=== PATIENT | male | born 1975 | race African-American/Black ===

== ENCOUNTER 2024-05-15 11:16 | Inpatient (IN) ==
--- NOTE | 2024-05-15 12:00 | Emergency Department Note ---
Impression & Plan Sepsis, Abdominal pain, Sinus tachycardia, Hypomagnesemia, Abnormal EKG, Elevated troponin I level, Acute constipation, Acute UTI (urinary tract infection) ED Provider Note NAME: KARI CORBETT AGE: 48 SEX: M : 1975 ARRIVES VIA: Walk-In INFORMANT: Patient, ED PROVIDER(S): Ghassan Isbell DO CHIEF COMPLAINT: Abdominal pain HPI: The patient is a 48-year-old male who presented to the emergency department for an evaluation of chest pain congestion and abdominal pain. The patient has a history of Parkinson's. He has difficulty communicating so he came with his caregiver. She also does provide the history. The patient states for about 3 to 4 days he has been having pain. He points to his left upper quadrant and left flank. He also states he has pain with breathing and chest pain. He denies having any vomiting. He denies having any diarrhea. He does self cath and sometimes has urine infections. He is been having chills but no definite fever. The patient was not seen by his family doctor but presented to the emergency department for further evaluation. ROS: See above HPI for pertinent positives & negatives. A total of 10 systems reviewed and were otherwise negative. PAST MEDICAL HISTORY: See Below PAST SURGICAL HISTORY: See Below FAMILY HISTORY: See Below SOCIAL HISTORY: See Below HOME MEDICATIONS: See Below ALLERGIES: See Below VITALS: See Below PHYSICAL EXAMINATION: GENERAL: The is awake and alert. He is somewhat anxious appearing. EYES: The conjunctivae are clear. The pupils are round and reactive. EARS, NOSE, MOUTH AND THROAT: The nose is without any evidence of any deformity. NECK: The neck is nontender and supple. RESPIRATORY: Normal respiratory effort is noted there is no evidence of wheezing rhonchi or rales CARDIOVASCULAR: Tachycardic and irregular heart sounds were noted to auscultation. There is no definite murmur. GASTROINTESTINAL: The abdomen was distended. There is left upper quadrant tenderness to palpation which was moderate. MUSCULOSKELETAL/EXTREMITIES: There is no evidence of gross deformity full range of motion is noted in the hips and shoulders. SKIN: There is no obvious evidence of any rash. There are no petechiae, pallor or cyanosis noted. NEUROLOGIC: Patient is awake alert and oriented x3 MEDICAL DECISION MAKING: The patient is a 48-year-old male who presented to the emergency department for an evaluation of abdominal pain. The patient appeared very uncomfortable. He was tachycardic. His blood pressure initially was elevated. He then started to drop his blood pressure. EKG showed no ST segment elevations but diffuse ST depressions were noted. Initial troponin was slightly elevated. The patient mostly localized pain to his left upper quadrant. He has a history of urinary tract infections in the past. He does self cath for urine. I discussed the patient's laboratory and radiographic studies with him. He may have some swallowing difficulty and may have some chronic aspiration. CT of the chest would suggest that. There was no definite venous thromboembolic disease but the patient does take oral anticoagulants. The patient did not have any acute process noted on abdomen. Given the patient's vital signs and the possibility of sepsis I did discuss the patient's condition with the on-call hospitalist group. Triage Nursing notes reviewed. Prior medical records reviewed Vital Signs: reviewed and remarkable for tachycardia and fever. Intermittent hypotension was also noted. Differential diagnosis: Viral syndrome, otitis, pharyngitis, pneumonia, influenza, meningitis, urinary tract infection, sepsis, bacteremia, as well as other pathologies. ER treatment provided: See below Diagnostics interpreted by me: ECG: EKG was obtained in the emergency department. My interpretation is sinus tachycardia at 146 bpm. There was no ectopy. Nonspecific ST depressions were noted. No previous tracing was available. Cardiac Monitoring: An order was placed for continuous cardiac monitoring. The monitor shows a rate of 129 bpm with sinus tachycardia. Laboratory studies: As stated above and show below. Imaging studies: See below. Radiographic imaging was reviewed by myself Consultation(s): Dr. Mathis was notified about the patient. He will evaluate the patient in the emergency department. I discussed this case with Kevyn who is on for the [facility] hospitalist. ED COURSE: Procedures: none Critical Care: I have personally spent greater than 45 minutes of critical care time in the direct management of this patient. This includes bedside care, interpretation of diagnostic studies, and testing, discussion with consultants, patient, and family members, and other required patient management activities. This 45 minutes is in excess of all separately billable procedures. Past Med/Surg History Problem List (Updated 05/15/24 @ 19:51 by Ghassan Isbell DO) Acute UTI (urinary tract infection) (Acute) Chronic pain At risk for aspiration Supratherapeutic INR Acute constipation (Acute) Elevated troponin I level (Acute) Abnormal EKG (Acute) Hypomagnesemia (Acute) Sinus tachycardia (Acute) Abdominal pain (Acute) Sepsis (Acute) Medical History Parkinsons Surgical History S/P deep brain stimulator placement Social History Smoking Status: Never smoker Feels Safe at Home: Yes Allergies Allergies Allergy/AdvReac Type Severity Reaction Status Date / Time No Known Allergies Allergy Unverified 05/15/24 16:10 Home Meds Home Medications Medication Instructions Recorded Confirmed albuterol sulfate 90 mcg/actuation 2 puff inhalation Q6 PRN Wheezing 05/15/24 05/15/24 aerosol inhaler amantadine HCl 137 mg 274 mg PO HS 05/15/24 05/15/24 capsule,extended release 24 hr (Gocovri) atorvastatin 20 mg tablet 20 mg PO HS 05/15/24 05/15/24 baclofen 10 mg tablet 10 mg PO TID 05/15/24 05/15/24 carbidopa ER 36.25 mg-levodopa 145 1 cap PO QID 05/15/24 05/15/24 mg capsule,extended release (Rytary) fluticasone fur. 100 mcg-umeclid 1 ea inhalation DAILY 05/15/24 05/15/24 62.5 mcg-vilant 25 mcg inhalat.powder (Trelegy Ellipta) ipratropium 0.5 mg-albuterol 3 mg 3 ml inhalation Q6 05/15/24 05/15/24 (2.5 mg base)/3 mL nebulization soln nitrofurantoin 100 mg PO QAM 05/15/24 05/15/24 monohydrate/macrocrystals 100 mg capsule omeprazole 40 mg capsule,delayed 40 mg PO HS 05/15/24 05/15/24 release oxycodone 30 mg tablet 30 mg PO Q4 PRN Pain 05/15/24 05/15/24 warfarin 2 mg tablet 2 mg PO UD 05/15/24 05/15/24 warfarin 2.5 mg tablet 2.5 mg PO UD 05/15/24 05/15/24 Results & Data (ED) Vital Signs Vital Signs - 24 hr 05/15/24 11:21 05/15/24 11:29 05/15/24 11:38 Temperature 37.8 C H Temperature Source Temporal Artery Scan Pulse Rate 152 H 151 H Pulse Rate [Right] 129 H Pulse Rate from SpO2 Sensor Pulse Rhythm [Right] Regular Pulse Strength [Right] Normal Respiratory Rate 22 61 H Respiratory Effort / Characteristics Labored Respiratory Depth Shallow Shallow Respiratory Pattern Tachypnea Blood Pressure 148/48 H Blood Pressure [Right Arm] 111/79 Blood Pressure Mean 81 Blood Pressure Mean [Right Arm] 89 Blood Pressure Position [Right Arm] Sitting Pulse Oximetry 94 94 Oxygen Delivery Method Room Air Nasal Cannula Oxygen Flow Rate 6 Sepsis Recent Fever Within 48 Hours Yes Sepsis New/Unexplained Change in Mental Status No Sepsis Action Taken by Nursing No Action Required 05/15/24 11:42 05/15/24 11:57 05/15/24 12:18 Temperature Temperature Source Pulse Rate 145 H 145 H 133 H Pulse Rate [Right] Pulse Rate from SpO2 Sensor 133 H Pulse Rhythm [Right] Pulse Strength [Right] Respiratory Rate 58 H 48 H 63 H Respiratory Effort / Characteristics Respiratory Depth Respiratory Pattern Blood Pressure 110/71 82/58 L 98/59 L Blood Pressure [Right Arm] Blood Pressure Mean 84 66 72 Blood Pressure Mean [Right Arm] Blood Pressure Position [Right Arm] Pulse Oximetry 95 Oxygen Delivery Method Nasal Cannula Nasal Cannula Nasal Cannula Oxygen Flow Rate 6 6 6 Sepsis Recent Fever Within 48 Hours Sepsis New/Unexplained Change in Mental Status Sepsis Action Taken by Nursing 05/15/24 12:24 05/15/24 12:27 05/15/24 12:45 Temperature Temperature Source Pulse Rate 130 H 130 H 127 H Pulse Rate [Right] Pulse Rate from SpO2 Sensor 130 H 130 H 127 H Pulse Rhythm [Right] Pulse Strength [Right] Respiratory Rate 64 H 62 H 59 H Respiratory Effort / Characteristics Respiratory Depth Respiratory Pattern Blood Pressure 94/45 L 102/42 L 113/75 Blood Pressure [Right Arm] Blood Pressure Mean 61 62 87 Blood Pressure Mean [Right Arm] Blood Pressure Position [Right Arm] Pulse Oximetry 94 95 97 Oxygen Delivery Method Nasal Cannula Nasal Cannula Nasal Cannula Oxygen Flow Rate 6 6 6 Sepsis Recent Fever Within 48 Hours Sepsis New/Unexplained Change in Mental Status Sepsis Action Taken by Nursing 05/15/24 13:30 05/15/24 13:36 05/15/24 13:45 Temperature Temperature Source Pulse Rate 117 H 115 H 115 H Pulse Rate [Right] Pulse Rate from SpO2 Sensor 118 H 115 H 119 H Pulse Rhythm [Right] Pulse Strength [Right] Respiratory Rate 58 H 58 H 58 H Respiratory Effort / Characteristics Respiratory Depth Respiratory Pattern Blood Pressure 121/73 118/73 114/66 Blood Pressure [Right Arm] Blood Pressure Mean 89 88 82 Blood Pressure Mean [Right Arm] Blood Pressure Position [Right Arm] Pulse Oximetry 99 99 99 Oxygen Delivery Method Nasal Cannula Nasal Cannula Nasal Cannula Oxygen Flow Rate 6 6 6 Sepsis Recent Fever Within 48 Hours Sepsis New/Unexplained Change in Mental Status Sepsis Action Taken by Nursing 05/15/24 13:54 05/15/24 14:03 05/15/24 14:09 Temperature Temperature Source Pulse Rate 115 H 113 H 114 H Pulse Rate [Right] Pulse Rate from SpO2 Sensor 115 H 113 H 114 H Pulse Rhythm [Right] Pulse Strength [Right] Respiratory Rate 58 H 57 H 57 H Respiratory Effort / Characteristics Respiratory Depth Respiratory Pattern Blood Pressure 120/87 119/92 123/92 Blood Pressure [Right Arm] Blood Pressure Mean 98 101 102 Blood Pressure Mean [Right Arm] Blood Pressure Position [Right Arm] Pulse Oximetry 98 98 98 Oxygen Delivery Method Nasal Cannula Nasal Cannula Nasal Cannula Oxygen Flow Rate 6 6 6 Sepsis Recent Fever Within 48 Hours Sepsis New/Unexplained Change in Mental Status Sepsis Action Taken by Nursing 05/15/24 14:10 05/15/24 14:21 05/15/24 14:30 Temperature Temperature Source Pulse Rate 113 H Pulse Rate [Right] Pulse Rate from SpO2 Sensor 112 H Pulse Rhythm [Right] Pulse Strength [Right] Respiratory Rate 56 H Respiratory Effort / Characteristics Respiratory Depth Respiratory Pattern Blood Pressure 119/93 140/79 123/96 Blood Pressure [Right Arm] Blood Pressure Mean 103 99 106 Blood Pressure Mean [Right Arm] Blood Pressure Position [Right Arm] Pulse Oximetry 99 Oxygen Delivery Method Nasal Cannula Oxygen Flow Rate 6 Sepsis Recent Fever Within 48 Hours Sepsis New/Unexplained Change in Mental Status Sepsis Action Taken by Nursing 05/15/24 15:30 05/15/24 15:40 05/15/24 15:40 Temperature Temperature Source Pulse Rate Pulse Rate [Right] Pulse Rate from SpO2 Sensor Pulse Rhythm [Right] Pulse Strength [Right] Respiratory Rate Respiratory Effort / Characteristics Respiratory Depth Respiratory Pattern Blood Pressure 104/67 118/62 118/62 Blood Pressure [Right Arm] Blood Pressure Mean 76 75 75 Blood Pressure Mean [Right Arm] Blood Pressure Position [Right Arm] Pulse Oximetry Oxygen Delivery Method Oxygen Flow Rate Sepsis Recent Fever Within 48 Hours Sepsis New/Unexplained Change in Mental Status Sepsis Action Taken by Nursing 05/15/24 15:42 05/15/24 15:45 05/15/24 15:45 Temperature Temperature Source Pulse Rate 113 H Pulse Rate [Right] Pulse Rate from SpO2 Sensor 112 H Pulse Rhythm [Right] Pulse Strength [Right] Respiratory Rate 55 H Respiratory Effort / Characteristics Respiratory Depth Respiratory Pattern Blood Pressure 96/72 L 96/72 L Blood Pressure [Right Arm] Blood Pressure Mean 85 85 Blood Pressure Mean [Right Arm] Blood Pressure Position [Right Arm] Pulse Oximetry 94 Oxygen Delivery Method Room Air Oxygen Flow Rate Sepsis Recent Fever Within 48 Hours Sepsis New/Unexplained Change in Mental Status Sepsis Action Taken by Nursing 05/15/24 15:45 05/15/24 15:45 05/15/24 15:48 Temperature Temperature Source Pulse Rate 112 H 113 H Pulse Rate [Right] Pulse Rate from SpO2 Sensor 112 H 113 H Pulse Rhythm [Right] Pulse Strength [Right] Respiratory Rate 55 H 55 H Respiratory Effort / Characteristics Respiratory Depth Respiratory Pattern Blood Pressure 96/72 L Blood Pressure [Right Arm] Blood Pressure Mean 85 Blood Pressure Mean [Right Arm] Blood Pressure Position [Right Arm] Pulse Oximetry 93 95 Oxygen Delivery Method Room Air Oxygen Flow Rate Sepsis Recent Fever Within 48 Hours Sepsis New/Unexplained Change in Mental Status Sepsis Action Taken by [facility] Medications Current Medication List: was personally reviewed by me Laboratory Data Attestation: I reviewed the patient's lab results. 05/15/24 12:02 05/15/24 12:02 Lab Results 05/15/24 05/15/24 05/15/24 Range/Units 12:02 12:43 12:48 WBC 4.61 L (4.8-10.8) K/ul RBC 5.54 (4.70-6.10) M/uL Hgb 14.2 (14.0-18.0) g/dl POC Hgb 13.6 L (14.0-18.0) g/dl Hct 46.3 (42.0-52.0) % POC Hct 40 L (42-52) % MCV 83.6 (80.0-100.0) fL MCH 25.6 (25.0-34.0) pg MCHC 30.7 L (32.0-36.0) g/dL RDW Std Deviation 42.5 (36.4-46.3) fL RDW Coeff of Margie 13.9 (11.5-14.5) % Plt Count 152 (130-400) K/uL MPV 10.2 (9.4-12.4) fL Immature Gran % (Auto) 0.4 % Neut % (Auto) 77.5 % Lymph % (Auto) 18.4 % [place] % (Auto) 2.4 % Eos % (Auto) 0.9 % Baso % (Auto) 0.4 % Neut # (Auto) 3.57 (1.40-6.50) K/uL Lymph # (Auto) 0.85 L (1.20-3.40) K/uL [place] # (Auto) 0.11 (0.11-0.59) K/uL Eos # (Auto) 0.04 (0.00-0.50) K/uL Baso # (Auto) 0.02 (0.00-0.20) K/uL Immature Gran # (Auto) 0.02 (0.01-0.20) K/uL PT 44.5 H (9.0-12.0) Seconds INR 4.7 H (0.9-1.1) APTT 38 H (21-31) Seconds PTT Ratio 1.4 VBG pH 7.34 L (7.36-7.41) VBG pCO2 39 (38-50) mmHg VBG pO2 71 mmHg VBG HCO3 21 mmol/L VBG O2 Saturation 96.0 % VBG Base Excess -4.4 mEq/L POC Sodium 144 (135-144) mmol/L Sodium 140 (136-145) mmol/L POC Potassium 3.4 (3.3-5.0) mmol/L Potassium 3.9 (3.5-5.1) mmol/L POC Chloride 107 (101-112) mmol/L Chloride 104 (98-107) mmol/L Carbon Dioxide 24 (21-32) mmol/L POC Total CO2 20 L (24-31) mmol/L Anion Gap 12 H (3-11) POC Anion Gap 21.0 (16-25) mmol/L POC BUN 16 (7-18) mg/dl BUN 18 (6-23) mg/dl Creatinine 1.24 (0.6-1.4) mg/dl POC Creatinine 1.1 (0.6-1.3) mg/dl Est Cr Clr Drug Dosing Not Reportable Est GFR ( Amer) 79.7 ml/min Est GFR (Non-Af Amer) 68.8 ml/min BUN/Creatinine Ratio 14.5 (10-20) Glucose 110 H (70-99(Fasting)) mg/dl POC Glucose (other) 97 (70-99) mg/dl Lactate (0.4-2.0) mmol/L Calcium 9.6 (8.6-10.3) mg/dl POC Ioniz Calcium [place]uyet 1.09 L (1.12-1.32) mmol/l Magnesium 1.6 L (1.7-2.4) mg/dl Total Bilirubin 1.1 H (0.2-1.0) mg/dl Direct Bilirubin 0.3 H (0-0.2) mg/dl AST 19 (13-39) U/L ALT 10 (7-52) U/L Alkaline Phosphatase 119 H (34-104) U/L Troponin I High Sens 20.9 H (0-20) pg/ml Total Protein 7.6 (6.0-8.3) gm/dl Albumin 4.4 (3.4-5.0) gm/dl Procalcitonin 10.10 H (0-0.5) ng/ml Urine Color Urine Appearance (Clear) Urine pH (4.5-7.5) Ur Specific [place] (1.000-1.030) Urine Protein (Negative) Urine Glucose (UA) (Negative) Urine Ketones (Negative) Urine Blood (Negative) Urine Nitrite (Negative) Urine Bilirubin (Negative) Urine Urobilinogen (Negative) Ur Leukocyte Esterase (Negative) Urine WBC (Auto) (0-5) /hpf Urine RBC (Auto) (0-2) /hpf U Hyaline Cast (Auto) (0-2) /lpf U Epithel Cells (Auto) (0-2) /hpf Urine Bacteria (Auto) (None Seen) Urine Mucus (None Prsent) Urine Yeast (None Prsent) Urine Sperm (None Prsent) Adenovirus (PCR) (NotDetected) B. pertussis DNA (PCR) (NotDetected) B.parapertussis DNA PCR (NotDetected) C. pneumoniae DNA (PCR) (NotDetected) Coronavirus OC43 (PCR) (NotDetected) Coronavirus HKU1 (PCR) (NotDetected) Coronavirus 229E (PCR) (NotDetected) SARS-CoV-2 (PCR) (NotDetected) Coronavirus NL63 (PCR) (NotDetected) Human Metapneumovir PCR (NotDetected) Influenza Type A (PCR) (NotDetected) Influenza Type B (PCR) (NotDetected) M. pneumoniae (PCR) (NotDetected) Parainfluenza 1 (PCR) (NotDetected) Parainfluenza 2 (PCR) (NotDetected) Parainfluenza 3 (PCR) (NotDetected) Parainfluenza 4 (PCR) (NotDetected) RSV (PCR) (NotDetected) Entero/Rhino (PCR) (NotDetected) 05/15/24 05/15/24 05/15/24 Range/Units 13:28 14:20 14:22 WBC (4.8-10.8) K/ul RBC (4.70-6.10) M/uL Hgb (14.0-18.0) g/dl POC Hgb (14.0-18.0) g/dl Hct (42.0-52.0) % POC Hct (42-52) % MCV (80.0-100.0) fL MCH (25.0-34.0) pg MCHC (32.0-36.0) g/dL RDW Std Deviation (36.4-46.3) fL RDW Coeff of Margie (11.5-14.5) % Plt Count (130-400) K/uL MPV (9.4-12.4) fL Immature Gran % (Auto) % Neut % (Auto) % Lymph % (Auto) % [place] % (Auto) % Eos % (Auto) % Baso % (Auto) % Neut # (Auto) (1.40-6.50) K/uL Lymph # (Auto) (1.20-3.40) K/uL [place] # (Auto) (0.11-0.59) K/uL Eos # (Auto) (0.00-0.50) K/uL Baso # (Auto) (0.00-0.20) K/uL Immature Gran # (Auto) (0.01-0.20) K/uL PT (9.0-12.0) Seconds INR (0.9-1.1) APTT (21-31) Seconds PTT Ratio VBG pH (7.36-7.41) VBG pCO2 (38-50) mmHg VBG pO2 mmHg VBG HCO3 mmol/L VBG O2 Saturation % VBG Base Excess mEq/L POC Sodium (135-144) mmol/L Sodium (136-145) mmol/L POC Potassium (3.3-5.0) mmol/L Potassium (3.5-5.1) mmol/L POC Chloride (101-112) mmol/L Chloride (98-107) mmol/L Carbon Dioxide (21-32) mmol/L POC Total CO2 (24-31) mmol/L Anion Gap (3-11) POC Anion Gap (16-25) mmol/L POC BUN (7-18) mg/dl BUN (6-23) mg/dl Creatinine (0.6-1.4) mg/dl POC Creatinine (0.6-1.3) mg/dl Est Cr Clr Drug Dosing Est GFR ( Amer) ml/min Est GFR (Non-Af Amer) ml/min BUN/Creatinine Ratio (10-20) Glucose (70-99(Fasting)) mg/dl POC Glucose (other) (70-99) mg/dl Lactate 1.2 (0.4-2.0) mmol/L Calcium (8.6-10.3) mg/dl POC Ioniz Calcium [place] (1.12-1.32) mmol/l Magnesium (1.7-2.4) mg/dl Total Bilirubin (0.2-1.0) mg/dl Direct Bilirubin (0-0.2) mg/dl AST (13-39) U/L ALT (7-52) U/L Alkaline Phosphatase (34-104) U/L Troponin I High Sens 235.4 H* D (0-20) pg/ml Total Protein (6.0-8.3) gm/dl Albumin (3.4-5.0) gm/dl Procalcitonin (0-0.5) ng/ml Urine Color Dark Yellow Urine Appearance Cloudy A (Clear) Urine pH 5.5 (4.5-7.5) Ur Specific [place] > 1.045 H (1.000-1.030) Urine Protein 2+ H (Negative) Urine Glucose (UA) Negative (Negative) Urine Ketones Trace H (Negative) Urine Blood Trace H (Negative) Urine Nitrite Positive A (Negative) Urine Bilirubin Negative (Negative) Urine Urobilinogen Negative (Negative) Ur Leukocyte Esterase 1+ H (Negative) Urine WBC (Auto) >50 H (0-5) /hpf Urine RBC (Auto) 6-10 H (0-2) /hpf U Hyaline Cast (Auto) 11-20 H (0-2) /lpf U Epithel Cells (Auto) 0-2 (0-2) /hpf Urine Bacteria (Auto) 3+ H (None Seen) Urine Mucus Present A (None Prsent) Urine Yeast Present A (None Prsent) Urine Sperm Present A (None Prsent) Adenovirus (PCR) (NotDetected) B. pertussis DNA (PCR) (NotDetected) B.parapertussis DNA PCR (NotDetected) C. pneumoniae DNA (PCR) (NotDetected) Coronavirus OC43 (PCR) (NotDetected) Coronavirus HKU1 (PCR) (NotDetected) Coronavirus 229E (PCR) (NotDetected) SARS-CoV-2 (PCR) (NotDetected) Coronavirus NL63 (PCR) (NotDetected) Human Metapneumovir PCR (NotDetected) Influenza Type A (PCR) (NotDetected) Influenza Type B (PCR) (NotDetected) M. pneumoniae (PCR) (NotDetected) Parainfluenza 1 (PCR) (NotDetected) Parainfluenza 2 (PCR) (NotDetected) Parainfluenza 3 (PCR) (NotDetected) Parainfluenza 4 (PCR) (NotDetected) RSV (PCR) (NotDetected) Entero/Rhino (PCR) (NotDetected) 05/15/24 Range/Units 14:24 WBC (4.8-10.8) K/ul RBC (4.70-6.10) M/uL Hgb (14.0-18.0) g/dl POC Hgb (14.0-18.0) g/dl Hct (42.0-52.0) % POC Hct (42-52) % MCV (80.0-100.0) fL MCH (25.0-34.0) pg MCHC (32.0-36.0) g/dL RDW Std Deviation (36.4-46.3) fL RDW Coeff of Margie (11.5-14.5) % Plt Count (130-400) K/uL MPV (9.4-12.4) fL Immature Gran % (Auto) % Neut % (Auto) % Lymph % (Auto) % [place] % (Auto) % Eos % (Auto) % Baso % (Auto) % Neut # (Auto) (1.40-6.50) K/uL Lymph # (Auto) (1.20-3.40) K/uL [place] # (Auto) (0.11-0.59) K/uL Eos # (Auto) (0.00-0.50) K/uL Baso # (Auto) (0.00-0.20) K/uL Immature Gran # (Auto) (0.01-0.20) K/uL PT (9.0-12.0) Seconds INR (0.9-1.1) APTT (21-31) Seconds PTT Ratio VBG pH (7.36-7.41) VBG pCO2 (38-50) mmHg VBG pO2 mmHg VBG HCO3 mmol/L VBG O2 Saturation % VBG Base Excess mEq/L POC Sodium (135-144) mmol/L Sodium (136-145) mmol/L POC Potassium (3.3-5.0) mmol/L Potassium (3.5-5.1) mmol/L POC Chloride (101-112) mmol/L Chloride (98-107) mmol/L Carbon Dioxide (21-32) mmol/L POC Total CO2 (24-31) mmol/L Anion Gap (3-11) POC Anion Gap (16-25) mmol/L POC BUN (7-18) mg/dl BUN (6-23) mg/dl Creatinine (0.6-1.4) mg/dl POC Creatinine (0.6-1.3) mg/dl Est Cr Clr Drug Dosing Est GFR ( Amer) ml/min Est GFR (Non-Af Amer) ml/min BUN/Creatinine Ratio (10-20) Glucose (70-99(Fasting)) mg/dl POC Glucose (other) (70-99) mg/dl Lactate (0.4-2.0) mmol/L Calcium (8.6-10.3) mg/dl POC Ioniz Calcium [place] (1.12-1.32) mmol/l Magnesium (1.7-2.4) mg/dl Total Bilirubin (0.2-1.0) mg/dl Direct Bilirubin (0-0.2) mg/dl AST (13-39) U/L ALT (7-52) U/L Alkaline Phosphatase (34-104) U/L Troponin I High Sens (0-20) pg/ml Total Protein (6.0-8.3) gm/dl Albumin (3.4-5.0) gm/dl Procalcitonin (0-0.5) ng/ml Urine Color Urine Appearance (Clear) Urine pH (4.5-7.5) Ur Specific [place] (1.000-1.030) Urine Protein (Negative) Urine Glucose (UA) (Negative) Urine Ketones (Negative) Urine Blood (Negative) Urine Nitrite (Negative) Urine Bilirubin (Negative) Urine Urobilinogen (Negative) Ur Leukocyte Esterase (Negative) Urine WBC (Auto) (0-5) /hpf Urine RBC (Auto) (0-2) /hpf U Hyaline Cast (Auto) (0-2) /lpf U Epithel Cells (Auto) (0-2) /hpf Urine Bacteria (Auto) (None Seen) Urine Mucus (None Prsent) Urine Yeast (None Prsent) Urine Sperm (None Prsent) Adenovirus (PCR) Not Detected (NotDetected) B. pertussis DNA (PCR) Not Detected (NotDetected) B.parapertussis DNA PCR Not Detected (NotDetected) C. pneumoniae DNA (PCR) Not Detected (NotDetected) Coronavirus OC43 (PCR) Not Detected (NotDetected) Coronavirus HKU1 (PCR) Not Detected (NotDetected) Coronavirus 229E (PCR) Not Detected (NotDetected) SARS-CoV-2 (PCR) Not Detected (NotDetected) Coronavirus NL63 (PCR) Not Detected (NotDetected) Human Metapneumovir PCR Not Detected (NotDetected) Influenza Type A (PCR) Not Detected (NotDetected) Influenza Type B (PCR) Not Detected (NotDetected) M. pneumoniae (PCR) Not Detected (NotDetected) Parainfluenza 1 (PCR) Not Detected (NotDetected) Parainfluenza 2 (PCR) Not Detected (NotDetected) Parainfluenza 3 (PCR) Not Detected (NotDetected) Parainfluenza 4 (PCR) Not Detected (NotDetected) RSV (PCR) Not Detected (NotDetected) Entero/Rhino (PCR) Not Detected (NotDetected) Administered Medications Acetaminophen (Acetaminophen 325 Mg Tab) 650 mg PO Q6H MAGGI Stop: 06/14/24 17:59 Last Admin: 05/15/24 18:38 Dose: 650 mg Documented By: RONEN Magnesium Sulfate/Dextrose (Magnesium Sulfate / D5w) 1 gm in 100 mls @ 50 mls/hr IV Q2H MAGGI Stop: 05/15/24 20:14 Last Admin: 05/15/24 18:38 Dose: 50 mls/hr Documented By: Infusion: 05/15/24 18:38 Dose: Infused Documented By: Admin: 05/15/24 16:45 Dose: 50 mls/hr Documented By: RONEN Discontinued Medications Baclofen (Baclofen 10 Mg Tab) 10 mg PO NOW STA Stop: 05/15/24 15:51 Last Admin: 05/15/24 16:45 Dose: 10 mg Documented By: RONEN Cefepime HCl (Cefepime 2,000 Mg/20 Ml Vial) Confirm Administered Dose 2,000 mg .ROUTE .STK-MED ONE Stop: 05/15/24 12:26 Last Admin: 05/15/24 12:39 Dose: Not Given Documented By: TRENT Docusate Sodium (Docusate Sodium 100 Mg Cap) 100 mg PO NOW ONE Stop: 05/15/24 16:11 Last Admin: 05/15/24 16:44 Dose: Not Given Documented By: RONEN Sodium Chloride (Nss) 1,000 mls @ 999 mls/hr IV .Q1H1M ONE Stop: 05/15/24 12:45 Last Infusion: 05/15/24 14:30 Dose: Infused Documented By: Admin: 05/15/24 12:38 Dose: 999 mls/hr Documented By: Infusion: 05/15/24 12:38 Dose: Infused Documented By: Admin: 05/15/24 12:11 Dose: 999 mls/hr Documented By: TRENT Acetaminophen (Ofirmev) 1,000 mg in 100 mls @ 400 mls/hr IV NOW STA Stop: 05/15/24 11:59 Last Infusion: 05/15/24 13:37 Dose: Infused Documented By: Admin: 05/15/24 12:10 Dose: 400 mls/hr Documented By: TRENT Sodium Chloride (Nss) 1,000 mls @ 999 mls/hr IV .Q1H1M ONE Stop: 05/15/24 13:20 Last Infusion: 05/15/24 14:30 Dose: Infused Documented By: Admin: 05/15/24 12:39 Dose: 999 mls/hr Documented By: TRENT Cefepime HCl 2,000 mg/ Syringe 20 mls @ 5 mls/min IV NOW STA; Protocol Stop: 05/15/24 12:26 Last Admin: 05/15/24 12:39 Dose: 5 mls/min Documented By: TRENT Magnesium Sulfate/Dextrose (Magnesium Sulfate / D5w) 1 gm in 100 mls @ 100 mls/hr IV NOW STA Stop: 05/15/24 13:54 Last Infusion: 05/15/24 16:51 Dose: Infused Documented By: Admin: 05/15/24 13:33 Dose: 100 mls/hr Documented By: TRENT Sodium Chloride (Nss) 500 mls @ 999 mls/hr IV .Q31M ONE Stop: 05/15/24 15:00 Last Infusion: 05/15/24 16:51 Dose: Infused Documented By: Admin: 05/15/24 14:38 Dose: 999 mls/hr Documented By: TRENT Ioversol (Optiray 320 125ml) 119 ml IV ONCE ONE Stop: 05/15/24 13:22 Last Admin: 05/15/24 13:22 Dose: 119 ml Documented By: FAVIO Morphine Sulfate (Morphine Sulfate 4 Mg/Ml 1 Ml Carp\Vial) 4 mg IV NOW STA Stop: 05/15/24 11:46 Last Admin: 05/15/24 12:11 Dose: 4 mg Documented By: TRENT Ondansetron HCl (Ondansetron Inj 2 Mg/Ml 2 Ml Vial) 4 mg IV NOW STA Stop: 05/15/24 11:46 Last Admin: 05/15/24 12:10 Dose: 4 mg Documented By: TRENT Imaging Data Attestation: I personally reviewed and interpreted this imaging study as follows: My Impression: 1 view chest x-ray was obtained in the emergency department. My interpretation is atelectasis at the left base, final report below. CT of the chest was obtained in the emergency department. My interpretation is no free air, there was increased interstitial markings, final report below. CT of the abdomen and pelvis was obtained in the emergency department. My interpretation is no free air or signs of definite bowel obstruction, final report below. Radiologist's Impression: Chest X-Ray 05/15/24 11:29 XR chest 1V portable HISTORY: Sepsis COMPARISON: None. FINDINGS: No pneumothorax. No pleural effusions. Patchy densities within the base of the left lower lobe may represent atelectasis or a pneumonia. The heart is normal in size. There is mild central pulmonary vascular congestion without overt edema. Right-sided neural stimulator pack is partially visualized. IMPRESSION: 1. Patchy densities within the base of the left lower lobe may represent atelectasis or pneumonia. 2. Mild central pulmonary vascular congestion without overt edema. ACT 112: Negative or not required by law. Electronically signed by: Greg Flores M.D. 05/15/2024 1:36 PM Abdomen/Pelvis CT 05/15/24 11:[address] WITH IV CONTRAST CT DOSE: HISTORY: LEFT FLANK PAIN TECHNIQUE: Multiaxial CT images of the abdomen and pelvis were performed following the use of intravenous contrast. A dose lowering technique was utilized adhering to the principles of ALARA. COMPARISON STUDY: None. FINDINGS: A few bibasilar linear densities most pronounced within the left lung base with patchy groundglass densities within the base of the lingula. This may represent atelectasis or a low-grade pneumonitis. No pneumoperitoneum. No pneumatosis. No acute fractures identified. Small amount of fluid within the distal esophagus. Small diverticulum at the third portion of the duodenum. The liver, gallbladder, spleen, right adrenal gland, and right kidney are unremarkable. There are 2 hypodense lesions within the left kidney with the largest measuring 1.8 cm. These favor cysts. No hydronephrosis. The main portal vein is patent. Normal caliber abdominal aorta. No retroperitoneal or pelvic lymphadenopathy. No pelvic free fluid. Mild bladder wall thickening. The prostate gland is mildly enlarged. There is an 8.9 cm rectal stool ball noted. Moderate fecal retention seen within the colon. No evidence for a bowel obstruction. Normal appendix. There may be minimal fat stranding adjacent to a few the diverticulum within the terminal ileum. This could be due to artifact versus an early ileal diverticulitis. This is best seen on image 209. There is a 12 mm left adrenal myelolipoma. IMPRESSION: 1. Questionable mild fat stranding adjacent to a few of the distal ileal diverticula versus artifact. This could represent an early acute ileal diverticulitis. 2. No evidence for bowel obstruction. 3. Moderate fecal retention including an 8.9 cm rectal stool ball. 4. Bibasilar densities favor atelectasis/dependent change. A low-grade pneumonitis also remains in the differential diagnosis. 5. No hydronephrosis. ACT 112: Negative or not required by law. Electronically signed by: Greg Flores M.D. 05/15/2024 2:10 PM Chest CTA 05/15/24 11:54 CT ANGIOGRAM OF THE CHEST CLINICAL HISTORY: Sepsis. COMPARISON STUDY: Chest x-ray dated 05/15/2024. TECHNIQUE: Following the IV administration of 119 cc of Optiray 320, CT angiogram of the chest was performed from the upper abdomen to the thoracic inlet utilizing the pulmonary embolus protocol. Images are reviewed in the axial, sagittal, and coronal planes. 3-D MIPS images are created and assessed. IV contrast was administered without complication. A dose lowering technique was utilized adhering to the principles of ALARA. The examination is degraded by motion artifact, as well as by streak artifact from the arms which could not be elevated above the chest. CT DOSE: 2486.05 mGy.cm FINDINGS: Thyroid: Imaged portions of the thyroid gland are normal in size and attenuation. Thoracic aorta: The thoracic aorta is normal in caliber and demonstrates standard 3-vessel arch anatomy. No dissection is seen. Pulmonary vasculature: The pulmonary trunk is normal in caliber. There are no filling defects identified in main, lobar, or proximal segmental pulmonary branches to suggest pulmonary embolus. Evaluation of the segmental and subsegmental branches is degraded by motion artifact an suboptimal contrast opacification. Heart: The heart is normal in size and without pericardial effusion. Lungs and pleural spaces: Evaluation of the lung parenchyma is degraded by motion artifact. The trachea and central airways are clear. There are dependent airspace opacities. No pleural effusion is seen. There are scattered calcified granulomas. Mediastinum: There is no mediastinal lymphadenopathy. Yenni: Clear. Axillae: There is no axillary lymphadenopathy. Upper abdomen: Esophagus is patulous, and is distended/fluid-filled to the level of the thoracic inlet. Partially visualized upper abdominal viscera is within normal limits. Skeletal structures: No lytic or blastic bony lesions are seen. Soft tissues: An electronic device is located in the right upper chest wall. Leads extend into the neck. IMPRESSION: 1. Streak and motion degraded examination. 2. There is no evidence of central pulmonary embolus in the main, lobar, or proximal segmental pulmonary arteries. The segmental and subsegmental branches are not well assessed. 3. Dependent airspace opacities likely represent atelectasis. Correlate clinically for evidence of a nonspecific pneumonitis. Follow up radiographically if warranted. 4. The esophagus is filled with fluid to the level of the thoracic inlet. Note that this may place the patient at risk for aspiration. 5. Additional findings as above. ACT 112: Negative or not required by law. Electronically signed by: Chung Cornelius M.D. 05/15/2024 1:35 PM Discharge Plan Visit Data Chief Complaint: Illness Stated Complaint: COLD, SHAKES ED Provider: Ghassan Isbell Discharge Problem: Sepsis, Abdominal pain, Sinus tachycardia, Hypomagnesemia, Abnormal EKG, Elevated troponin I level, Acute constipation, Acute UTI (urinary tract infection) Patient Disposition: Being Evaluated by Hospitalist Discharge Problem: Sepsis Qualifiers: Sepsis type: sepsis due to unspecified organism Sepsis acute organ dysfunction status: unspecified Qualified Code(s): A41.9 - Sepsis, unspecified organism Abdominal pain Qualifiers: Abdominal location: left upper quadrant Qualified Code(s): R10.12 - Left upper quadrant pain
[2024-05-15] MEDS: ACETAMINOPHEN 1,000 MG/100 ML VIAL IV STA (12:10)
[2024-05-15] MEDS: ONDANSETRON INJ 2 MG/ML 2 ML VIAL IV STA (12:10)
[2024-05-15] MEDS: MoRPHine SULFATE 4 MG/ML 1 ML CARP\\VIAL IV STA (12:11)
[2024-05-15] MEDS: SODIUM CHLORIDE 0.9% 1,000 ML IV ONE ×2 (12:11→12:39)
[2024-05-15 12:34] LABS: Basophils # (auto) 0.02 K/uL (0.00-0.20); Basophils % (auto) 0.4 %; Eosinophils # (auto) 0.04 K/uL (0.00-0.50); Eosinophils % (auto) 0.9 %; Hematocrit (blood only) 46.3 % (42.0-52.0); Hemoglobin 14.2 g/dl (14.0-18.0); Immature Granulocytes # (auto) 0.02 K/uL (0.01-0.20); Immature Granulocytes % (auto) 0.4 %; Lymphocytes # (auto) 0.85 K/uL (1.20-3.40); Lymphocytes % (auto) 18.4 %; Mean Corpuscular Hemoglobin 25.6 pg (25.0-34.0); Mean Corpuscular Hgb Conc 30.7 g/dL (32.0-36.0); Mean Corpuscular Volume 83.6 fL (80.0-100.0); Mean Platelet Volume 10.2 fL (9.4-12.4); Monocytes # (auto) 0.11 K/uL (0.11-0.59); Monocytes % (auto) 2.4 %; Neutrophils # (auto) 3.57 K/uL (1.40-6.50); Neutrophils % (auto) 77.5 %; Platelet Count 152 K/uL (130-400); RDW Coefficient of Variation 13.9 % (11.5-14.5); RDW Standard Deviation 42.5 fL (36.4-46.3); Red Blood Count 5.54 M/uL (4.70-6.10); White Blood Count 4.61 K/ul (4.8-10.8)
[2024-05-15] MEDS: CEFEPIME 2,000 MG/20 ML VIAL ONE (12:39)
[2024-05-15] MEDS: CEFEPIME 2,000 MG in SYRINGE 0 ML IV STA (12:39)
[2024-05-15 12:53] LABS: Alanine Aminotransferase 10 U/L (7-52); Albumin Level 4.4 gm/dl (3.4-5.0); Alkaline Phosphatase 119 U/L (34-104); Anion Gap 12 (3-11); Aspartate Aminotransferase 19 U/L (13-39); BUN Creatinine Ratio 14.5 (10-20); Bilirubin Direct 0.3 mg/dl (0-0.2); Bilirubin,Total 1.1 mg/dl (0.2-1.0); Blood Urea Nitrogen 18 mg/dl (6-23); Calcium 9.6 mg/dl (8.6-10.3); Carbon Dioxide 24 mmol/L (21-32); Chloride 104 mmol/L (98-107); Est GFR (African American) 79.7 ml/min; Est GFR (Non-African American) 68.8 ml/min; Glucose 110 mg/dl (70-99(Fasting)); Magnesium 1.6 mg/dl (1.7-2.4); Potassium 3.9 mmol/L (3.5-5.1); Sodium 140 mmol/L (136-145); Total Protein 7.6 gm/dl (6.0-8.3)
[2024-05-15 12:59] LABS: Troponin I High Sensitivity 20.9 pg/ml (0-20)
[2024-05-15 13:06] LABS: iSTAT Creatinine 1.1 mg/dl (0.6-1.3); iSTAT Hemoglobin 13.6 g/dl (14.0-18.0); iSTAT Ionized Calcium 1.09 mmol/l (1.12-1.32); iSTAT Potassium 3.4 mmol/L (3.3-5.0)
[2024-05-15 13:13] LABS: Base Excess VBG -4.4 mEq/L; HCO3 VBG 21 mmol/L; PCO2 VBG 39 mmHg (38-50); PO2 VBG 71 mmHg; pH VBG 7.34 (7.36-7.41)
[2024-05-15 13:20] LABS: INR 4.7 (0.9-1.1); Partial Thromboplastin Ratio 1.4; Partial Thromboplastin Time 38 Seconds (21-31); Prothrombin Time 44.5 Seconds (9.0-12.0)
[2024-05-15] MEDS: OPTIRAY 320 125ml IV ONE (13:22)
[2024-05-15] MEDS: MAGNESIUM SULFATE / D5W 1 GM/100 ML BAG IV STA (13:33)
--- NOTE | 2024-05-15 13:37 | CT Scan Report ---
CT ANGIOGRAM OF THE CHEST CLINICAL HISTORY: Sepsis. COMPARISON STUDY: Chest x-ray dated 05/15/2024. TECHNIQUE: Following the IV administration of 119 cc of Optiray 320, CT angiogram of the chest was pe rformed from the upper abdomen to the thoracic inlet utilizing the pulmonary embolus protocol. Images are reviewed in the axial, sagittal, and coronal planes. 3-D MIPS images are created and assessed. I V contrast was administered without complication. A dose lowering technique was utilized adhering to the principles of ALARA. The examination is degraded by motion artifact, as well as by streak artifa ct from the arms which could not be elevated above the chest. CT DOSE: 2486.05 mGy.cm FINDINGS: Thyroid: Imaged portions of the thyroid gland are normal in size and attenuation. Thoracic aorta: The thoracic aorta is normal in caliber and demonstrates standard 3-vessel arch anato my. No dissection is seen. Pulmonary vasculature: The pulmonary trunk is normal in caliber. There are no filling defects identif ied in main, lobar, or proximal segmental pulmonary branches to suggest pulmonary embolus. Evaluation of the segmental and subsegmental branches is degraded by motion artifact an suboptimal contrast opa cification. Heart: The heart is normal in size and without pericardial effusion. Lungs and pleural spaces: Evaluation of the lung parenchyma is degraded by motion artifact. The trach ea and central airways are clear. There are dependent airspace opacities. No pleural effusion is seen . There are scattered calcified granulomas. Mediastinum: There is no mediastinal lymphadenopathy. Yenni: Clear. Axillae: There is no axillary lymphadenopathy. Upper abdomen: Esophagus is patulous, and is distended/fluid-filled to the level of the thoracic inle t. Partially visualized upper abdominal viscera is within normal limits. Skeletal structures: No lytic or blastic bony lesions are seen. Soft tissues: An electronic device is located in the right upper chest wall. Leads extend into the ne ck. IMPRESSION: 1. Streak and motion degraded examination. 2. There is no evidence of central pulmonary embolus in the main, lobar, or proximal segmental pulmon demetra arteries. The segmental and subsegmental branches are not well assessed. 3. Dependent airspace opacities likely represent atelectasis. Correlate clinically for evidence of a nonspecific pneumonitis. Follow up radiographically if warranted. 4. The esophagus is filled with fluid to the level of the thoracic inlet. Note that this may place th e patient at risk for aspiration. 5. Additional findings as above. ACT 112: Negative or not required by law. Electronically signed by: Chung Cornelius M.D. 05/15/2024 1:35 PM
--- NOTE | 2024-05-15 13:38 | XRay Report ---
XR chest 1V portable HISTORY: Sepsis COMPARISON: None. FINDINGS: No pneumothorax. No pleural effusions. Patchy densities within the base of the left lower l obe may represent atelectasis or a pneumonia. The heart is normal in size. There is mild central pulm onary vascular congestion without overt edema. Right-sided neural stimulator pack is partially visual ized. IMPRESSION: 1. Patchy densities within the base of the left lower lobe may represent atelectasis or pneumonia. 2. Mild central pulmonary vascular congestion without overt edema. ACT 112: Negative or not required by law. Electronically signed by: Greg Flores M.D. 05/15/2024 1:36 PM
--- NOTE | 2024-05-15 14:11 | CT Scan Report ---
ABDOMEN AND PELVIS CT WITH IV CONTRAST CT DOSE: HISTORY: LEFT FLANK PAIN TECHNIQUE: Multiaxial CT images of the abdomen and pelvis were performed following the use of intrave nous contrast. A dose lowering technique was utilized adhering to the principles of ALARA. COMPARISON STUDY: None. FINDINGS: A few bibasilar linear densities most pronounced within the left lung base with patchy grou ndglass densities within the base of the lingula. This may represent atelectasis or a low-grade pneum onitis. No pneumoperitoneum. No pneumatosis. No acute fractures identified. Small amount of fluid wit hin the distal esophagus. Small diverticulum at the third portion of the duodenum. The liver, gallbla dder, spleen, right adrenal gland, and right kidney are unremarkable. There are 2 hypodense lesions w ithin the left kidney with the largest measuring 1.8 cm. These favor cysts. No hydronephrosis. The ma in portal vein is patent. Normal caliber abdominal aorta. No retroperitoneal or pelvic lymphadenopath y. No pelvic free fluid. Mild bladder wall thickening. The prostate gland is mildly enlarged. There i s an 8.9 cm rectal stool ball noted. Moderate fecal retention seen within the colon. No evidence for a bowel obstruction. Normal appendix. There may be minimal fat stranding adjacent to a few the divert iculum within the terminal ileum. This could be due to artifact versus an early ileal diverticulitis. This is best seen on image 209. There is a 12 mm left adrenal myelolipoma. IMPRESSION: 1. Questionable mild fat stranding adjacent to a few of the distal ileal diverticula versus artifact. This could represent an early acute ileal diverticulitis. 2. No evidence for bowel obstruction. 3. Moderate fecal retention including an 8.9 cm rectal stool ball. 4. Bibasilar densities favor atelectasis/dependent change. A low-grade pneumonitis also remains in e differential diagnosis. 5. No hydronephrosis. ACT 112: Negative or not required by law. Electronically signed by: Greg Flores M.D. 05/15/2024 2:10 PM
[2024-05-15] MEDS: SODIUM CHLORIDE 0.9% 500 ML IV ONE (14:38)
--- NOTE | 2024-05-15 15:00 | History & Physical Report ---
Date of Service May 15, 2024 Assessment & Plan (1) Sepsis: Plan: Admit to the PCU on telemetry and pulse oximetry Currently stable but ill-appearing Presented to the ED this afternoon due to acute onset of generalized pain, generalized weakness, and chills Met sepsis criteria on arrival due to tachycardia with heart rate in the 150s, tachypnea, and source most likely being a recurrent UTI but cannot rule out possible aspiration pneumonia as well Status post 2.5 L normal saline in the ED, this completes his sepsis fluid bolus Lactate was within normal limits Blood cultures were obtained and patient received a dose of cefepime in the ED Will continue with Zosyn for now to cover possible UTI and aspiration pneumonia Follow blood and urine cultures May require maintenance fluids later today if his oral intake remains poor Patient did pass his bedside dysphagia screen, will start easy to diet with aspiration precautions for now 4 times daily bladder scan and as needed straight cath orders have been placed for PVR equal to greater than 350 cc, continue to monitor for urinary retention Incentive spirometry, flutter therapy, as needed O2 to keep SpO2 at or above 92% Bilateral LUMA stockings for DVT prophylaxis with his supratherapeutic INR Heart healthy diet with easy to chew texture AM CBC, CMP, mag, PT/INR (2) Elevated troponin I level: Plan: Initial high-sensitivity troponin level was 20, 2-hour repeat elevated at 235 Patient denies chest pain during my exam, no acute ST segment or T wave changes on EKG Likely due to demand from significant tachycardia and sepsis on arrival Will continue to monitor on telemetry, will continue to trend every 6 hour high-sensitivity troponin until it reaches a plateau If further current clinical concern will obtain TTE (3) Supratherapeutic INR: Plan: Patient is on warfarin due to 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 At high risk of aspiration Patient did pass bedside dysphagia screen For now we will keep him on aspiration precautions with easy to chew diet Speech therapy consult been placed for further evaluation and possible treatment recommendations (6) Acute constipation: Plan: Patient noted to have a 8.9 cm rectal stool ball on CT of abdomen pelvis No signs of obstruction on imaging Likely due to his Parkinson's disease and chronic oxycodone use for pain Will start twice daily Colace and scheduled MiraLAX, if no bowel movement overnight would recommend starting enemas tomorrow (7) Parkinsons: Plan: Patient is status post deep brain stimulator placement approximately 5 years ago Continue home carbidopa levodopa and amantadine (8) Chronic pain: Plan: Continue home Bactrim and oxycodone Plan The patient was discussed with Dr. Mathis at the time of the admission History of Present Illness Chief Complaint: Generalized pain Primary Care Provider: NO PCP Nick is a 48-year-old male with a past medical history significant for Parkinson's disease status post deep brain stimulator placement (approximately 5 years ago), previous DVT (on warfarin), chronic urinary retention with intermittent straight cath requirements and recurrent UTIs, hyperlipidemia, chronic pain who presented to the [facility] ED on 05/15/2024 with his caregiver due to complaints of generalized pain. On arrival to the ED he was noted to have a fever of 37.8 Celsius, was tachycardic with sinus tachycardia in the 150s, tachypneic with respirations reported in the 50s, hypotensive at 82/58, and stable on room air. Labs were significant for a leukopenia of 4.61, INR of 4.7, VBG pH of 7.34 with pCO2 of 39 and pO2 of 71, anion gap of 12 with bicarb within normal limits, ionized calcium of 1.09, mag of 1.6, total bili of 1.1 with direct bili of 0.3 but with AST and ALT within normal limits, Pro-Titus of 10, initial high-sensitivity troponin of 20 with 2- hour repeat of 235, UA consistent with infection, and full respiratory BioFire negative. Chest x-ray was read as patchy densities within the base of the left lower lobe may represent atelectasis or pneumonia. Mild central pulmonary vascular congestion without overt edema. CTA of the chest was read as streak and motion degraded examination. There is no evidence of central pulmonary embolus in the main, lobar, or proximal segmental pulmonary arteries. This leg [place] subsegmental branches are not well assessed. Dependent airspace opaciti es likely represent atelectasis correlate clinically for evidence of a nonspecific pneumonitis. Follow-up radiographically if warranted. The esophagus is filled with fluid to the level of the thoracic and. Note this may place the patient at risk of aspiration. CT of the abdomen pelvis with IV contrast was read as questionable mild ending adjacent to a of the distal ileal [place] versus artifact. This could represent an early acute ileal diverticulitis. No evidence of bowel obstruction. Moderate fecal retention including an 8.9 cm rectal stool ball. Bibasilar densities favor atelectasis/ dependent change. A low-grade pneumonitis also remains in the differential diagnosis. No hydronephrosis. Prior to admission the patient was given 2.5 L NSS, a dose of cefepime, 1 g IV Tylenol, 4 mg IV morphine, 4 mg IV Zofran, and 1 g IV mag sulfate. Patient was lying in bed in no acute distress at time of exam with his caregiver bedside, history is obtained from both. The patient is essentially nonverbal at baseline, can sometimes answer yes or no to questions but typically uses his phone notepad lindy to communicate. His caregiver explains that they traveled from [place] to [place] today as she needed to move her daughter into the dorms as she is a freshman at [employer]. She states that the patient had been in his normal state of health this morning and was able to walk to the car with limited help, he does sometimes use a walker or cane for ambulation. She explains that when they arrived in [place] the patient was complaining of generalized pain and feeling very cold which is not normal for him. He had increased generalized weakness and was very weak on his legs which is why she brought him to the ED for further evaluation. Patient explains that he has generalized pain, earlier he had pain in the left lower quadrant but explains that this has subsequently resolved. Has chronic neck pain but nothing new. The patient has history of recurrent UTIs due to urinary retention requiring intermittent straight cathing. He has been on suppressive Macrobid therapy for the last few months. When asked, the patient denies current headache, chest pain, shortness of breath, nausea/vomiting, diarrhea, or recent trauma. When asked, his caregiver explains that the patient has had a significant amount of secretions recently but is unsure if he is aspirated anything in the recent past. They confirmed the patient is a full code and his caregiver, Viviana, is his primary decision-maker if he cannot make decisions himself. Please refer to Dr. Mathis's attestation for any changes to the treatment plan Allergies Allergy/AdvReac Type Severity Reaction Status Date / Time No Known Allergies Allergy Unverified 05/15/24 16:10 Home Medications Medication Instructions Recorded Confirmed Type albuterol sulfate 90 mcg/actuation 2 puff inhalation Q6 PRN Wheezing 05/15/24 05/15/24 History aerosol inhaler amantadine HCl 137 mg 274 mg PO HS 05/15/24 05/15/24 History capsule,extended release 24 hr (Gocovri) atorvastatin 20 mg tablet 20 mg PO HS 05/15/24 05/15/24 History baclofen 10 mg tablet 10 mg PO TID 05/15/24 05/15/24 History carbidopa ER 36.25 mg-levodopa 145 1 cap PO QID 05/15/24 05/15/24 History mg capsule,extended release (Rytary) fluticasone fur. 100 mcg-umeclid 1 ea inhalation DAILY 05/15/24 05/15/24 History 62.5 mcg-vilant 25 mcg inhalat.powder (Trelegy Ellipta) ipratropium 0.5 mg-albuterol 3 mg 3 ml inhalation Q6 05/15/24 05/15/24 History (2.5 mg base)/3 mL nebulization soln nitrofurantoin 100 mg PO QAM 05/15/24 05/15/24 History monohydrate/macrocrystals 100 mg capsule omeprazole 40 mg capsule,delayed 40 mg PO HS 05/15/24 05/15/24 History release oxycodone 30 mg tablet 30 mg PO Q4 PRN Pain 05/15/24 05/15/24 History warfarin 2 mg tablet 2 mg PO UD 05/15/24 05/15/24 History warfarin 2.5 mg tablet 2.5 mg PO UD 05/15/24 05/15/24 History docusate sodium 100 mg capsule 100 mg PO BID 05/18/24 05/18/24 History (Colace) polyethylene glycol 3350 17 gram 17 g PO DAILY 05/18/24 05/18/24 History oral powder packet (Miralax) amoxicillin 400 mg-potassium 10 ml PO BID #120 mL 05/22/24 Rx clavulanate 57 mg/5 mL oral suspension metoprolol tartrate 25 mg tablet 12.5 mg (1/2 x 25 mg) PO BID #30 05/22/24 Rx tabs Past Med/Surg History Problem List (Updated 05/16/24 @ 11:15 by Jessa Reese MD, [facility]) Aspiration pneumonia Multifocal pneumonia Acute UTI (urinary tract infection) (Acute) Chronic pain At risk for aspiration Supratherapeutic INR Acute constipation (Acute) Elevated troponin I level (Acute) Abnormal EKG (Acute) Hypomagnesemia (Acute) Sinus tachycardia (Acute) Abdominal pain (Acute) Sepsis (Acute) Medical History Parkinsons Surgical History S/P deep brain stimulator placement Social History Smoking Status: Never smoker Hx Alcohol Use: No Hx Substance Use: No Preferred Language: Icelandic Communication Ability: Impaired Outside [employer] Consultant Required: No Beliefs That Will Affect Care: None Current Living Situation: Family Feels Safe at Home: Yes Assistive Devices: Walker Physical Exam Physical Exam: Physical Exam: General: In no acute distress, stated age, ill-appearing but nontoxic HEENT: Masked facies, previous scar on the right cheondoism appears well-healed and without signs of infection, no scleral icterus, pupils around round, symmetrical, and reactive to light, dry mucus membranes, trachea midline, no thyromegaly Chest/Pulm: No respiratory distress, symmetrical chest expansion, scattered expiratory wheezing Cardiac: Tachycardic rate, regular rhythm, no murmurs noted Abdomen: Negative for ascites and bruising, normoactive bowel sounds, soft, non-tender to palpation throughout Musculoskeletal: Patient with limited range of motion in the bilateral upper and lower extremities due to known history of Parkinson's disease, no acute trauma on exam Extremities: Radial, dorsalis pedis, and posterior tibial pulses are intact and symmetrical, no edema noted in the BL LE's Skin: Warm, dry, no rashes , lesions, or scars noted Neuro: Alert unable to answer orientation questions due to baseline severe Parkinson's disease, CN II-XII tested and intact, baseline intentional tremor noted Psych: No acute distress, calm and cooperative during the exam Results & Data Results & Data Vital Signs (Past 12 Hours) Vital Signs Temp Pulse Pulse Resp BP BP Pulse Ox 05/15/24 14:30 123/96 05/15/24 14:21 113 H 56 H 140/79 99 05/15/24 14:10 119/93 05/15/24 14:09 114 H 57 H 123/92 98 05/15/24 14:03 113 H 57 H 119/92 98 05/15/24 13:54 115 H 58 H 120/87 98 05/15/24 13:45 115 H 58 H 114/66 99 05/15/24 13:36 115 H 58 H 118/73 99 05/15/24 13:30 117 H 58 H 121/73 99 05/15/24 12:45 127 H 59 H 113/75 97 05/15/24 12:27 130 H 62 H 102/42 L 95 05/15/24 12:24 130 H 64 H 94/45 L 94 05/15/24 12:18 133 H 63 H 98/59 L 95 05/15/24 11:57 145 H 48 H 82/58 L 05/15/24 11:42 145 H 58 H 110/71 05/15/24 11:29 129 H 61 H 111/79 94 05/15/24 11:21 37.8 C H 152 H 22 148/48 H 94 O2 Del Method O2 Flow Rate 05/15/24 14:30 05/15/24 14:21 Nasal Cannula 6 05/15/24 14:10 05/15/24 14:09 Nasal Cannula 6 05/15/24 14:03 Nasal Cannula 6 05/15/24 13:54 Nasal Cannula 6 05/15/24 13:45 Nasal Cannula 6 05/15/24 13:36 Nasal Cannula 6 05/15/24 13:30 Nasal Cannula 6 05/15/24 12:45 Nasal Cannula 6 05/15/24 12:27 Nasal Cannula 6 05/15/24 12:24 Nasal Cannula 6 05/15/24 12:18 Nasal Cannula 6 05/15/24 11:57 Nasal Cannula 6 05/15/24 11:42 Nasal Cannula 6 05/15/24 11:29 Nasal Cannula 6 05/15/24 11:21 Room Air Laboratory Results Abnormal lab results 05/15/24 05/15/24 05/15/24 Range/Units 12:02 12:43 12:48 WBC 4.61 L (4.8-10.8) K/ul POC Hgb 13.6 L (14.0-18.0) g/dl POC Hct 40 L (42-52) % MCHC 30.7 L (32.0-36.0) g/dL Lymph # (Auto) 0.85 L (1.20-3.40) K/uL PT 44.5 H (9.0-12.0) Seconds INR 4.7 H (0.9-1.1) APTT 38 H (21-31) Seconds VBG pH 7.34 L (7.36-7.41) POC Total CO2 20 L (24-31) mmol/L Anion Gap 12 H (3-11) Glucose 110 H (70-99(Fasting)) mg/dl POC Ioniz Calcium [place] 1.09 L (1.12-1.32) mmol/l Magnesium 1.6 L (1.7-2.4) mg/dl Total Bilirubin 1.1 H (0.2-1.0) mg/dl Direct Bilirubin 0.3 H (0-0.2) mg/dl Alkaline Phosphatase 119 H (34-104) U/L Troponin I High Sens 20.9 H (0-20) pg/ml Procalcitonin 10.10 H (0-0.5) ng/ml Urine Appearance (Clear) Ur Specific [place] (1.000-1.030) Urine Protein (Negative) Urine Ketones (Negative) Urine Blood (Negative) Urine Nitrite (Negative) Ur Leukocyte Esterase (Negative) Urine WBC (Auto) (0-5) /hpf Urine RBC (Auto) (0-2) /hpf U Hyaline Cast (Auto) (0-2) /lpf Urine Bacteria (Auto) (None Seen) Urine Mucus (None Prsent) Urine Yeast (None Prsent) Urine Sperm (None Prsent) 05/15/24 05/15/24 Range/Units 14:20 14:22 WBC (4.8-10.8) K/ul POC Hgb (14.0-18.0) g/dl POC Hct (42-52) % MCHC (32.0-36.0) g/dL Lymph # (Auto) (1.20-3.40) K/uL PT (9.0-12.0) Seconds INR (0.9-1.1) APTT (21-31) Seconds VBG pH (7.36-7.41) POC Total CO2 (24-31) mmol/L Anion Gap (3-11) Glucose (70-99(Fasting)) mg/dl POC Ioniz Calcium [place] (1.12-1.32) mmol/l Magnesium (1.7-2.4) mg/dl Total Bilirubin (0.2-1.0) mg/dl Direct Bilirubin (0-0.2) mg/dl Alkaline Phosphatase (34-104) U/L Troponin I High Sens 235.4 H* D (0-20) pg/ml Procalcitonin (0-0.5) ng/ml Urine Appearance Cloudy A (Clear) Ur Specific [place] > 1.045 H (1.000-1.030) Urine Protein 2+ H (Negative) Urine Ketones Trace H (Negative) Urine Blood Trace H (Negative) Urine Nitrite Positive A (Negative) Ur Leukocyte Esterase 1+ H (Negative) Urine WBC (Auto) >50 H (0-5) /hpf Urine RBC (Auto) 6-10 H (0-2) /hpf U Hyaline Cast (Auto) 11-20 H (0-2) /lpf Urine Bacteria (Auto) 3+ H (None Seen) Urine Mucus Present A (None Prsent) Urine Yeast Present A (None Prsent) Urine Sperm Present A (None Prsent) Diagnostic Findings Chest X-Ray 05/15/24 11:29 XR chest 1V portable HISTORY: Sepsis COMPARISON: None. FINDINGS: No pneumothorax. No pleural effusions. Patchy densities within the base of the left lower lobe may represent atelectasis or a pneumonia. The heart is normal in size. There is mild central pulmonary vascular congestion without overt edema. Right-sided neural stimulator pack is partially visualized. IMPRESSION: 1. Patchy densities within the base of the left lower lobe may represent atelectasis or pneumonia. 2. Mild central pulmonary vascular congestion without overt edema. ACT 112: Negative or not required by law. Electronically signed by: Greg Flores M.D. 05/15/2024 1:36 PM Abdomen/Pelvis CT 05/15/24 11:[address] WITH IV CONTRAST CT DOSE: HISTORY: LEFT FLANK PAIN TECHNIQUE: Multiaxial CT images of the abdomen and pelvis were performed following the use of intravenous contrast. A dose lowering technique was utilized adhering to the principles of ALARA. COMPARISON STUDY: None. FINDINGS: A few bibasilar linear densities most pronounced within the left lung base with patchy groundglass densities within the base of the lingula. This may represent atelectasis or a low-grade pneumonitis. No pneumoperitoneum. No pneumatosis. No acute fractures identified. Small amount of fluid within the distal esophagus. Small diverticulum at the third portion of the duodenum. The liver, gallbladder, spleen, right adrenal gland, and right kidney are unremarkable. There are 2 hypodense lesions within the left kidney with the largest measuring 1.8 cm. These favor cysts. No hydronephrosis. The main portal vein is patent. Normal caliber abdominal aorta. No retroperitoneal or pelvic lymphadenopathy. No pelvic free fluid. Mild bladder wall thickening. The prostate gland is mildly enlarged. There is an 8.9 cm rectal stool ball noted. Moderate fecal retention seen within the colon. No evidence for a bowel obstruction. Normal appendix. There may be minimal fat stranding adjacent to a few the diverticulum within the terminal ileum. This could be due to artifact versus an early ileal diverticulitis. This is best seen on image 209. There is a 12 mm left adrenal myelolipoma. IMPRESSION: 1. Questionable mild fat stranding adjacent to a few of the distal ileal diverticula versus artifact. This could represent an early acute ileal diverticulitis. 2. No evidence for bowel obstruction. 3. Moderate fecal retention including an 8.9 cm rectal stool ball. 4. Bibasilar densities favor atelectasis/dependent change. A low-grade pneumonitis also remains in the differential diagnosis. 5. No hydronephrosis. ACT 112: Negative or not required by law. Electronically signed by: Greg Flores M.D. 05/15/2024 2:10 PM Chest CTA 05/15/24 11:54 CT ANGIOGRAM OF THE CHEST CLINICAL HISTORY: Sepsis. COMPARISON STUDY: Chest x-ray dated 05/15/2024. TECHNIQUE: Following the IV administration of 119 cc of Optiray 320, CT tevin ogram of the chest was performed from the upper abdomen to the thoracic inlet utilizing the pulmonary embolus protocol. Images are reviewed in the axial, sagittal, and coronal planes. 3-D MIPS images are created and assessed. IV contrast was administered without complication. A dose lowering technique was utilized adhering to the principles of ALARA. The examination is degraded by motion artifact, as well as by streak artifact from the arms which could not be elevated above the chest. CT DOSE: 2486.05 mGy.cm FINDINGS: Thyroid: Imaged portions of the thyroid gland are normal in size and attenuation. Thoracic aorta: The thoracic aorta is normal in caliber and demonstrates standard 3-vessel arch anatomy. No dissection is seen. Pulmonary vasculature: The pulmonary trunk is normal in caliber. There are no filling defects identified in main, lobar, or proximal segmental pulmonary branches to suggest pulmonary embolus. Evaluation of the segmental and subsegmental branches is degraded by motion artifact an suboptimal contrast opacification. Heart: The heart is normal in size and without pericardial effusion. Lungs and pleural spaces: Evaluation of the lung parenchyma is degraded by motion artifact. The trachea and central airways are clear. There are dependent airspace opacities. No pleural effusion is seen. There are scattered calcified granulomas. Mediastinum: There is no mediastinal lymphadenopathy. Yenni: Clear. Axillae: There is no axillary lymphadenopathy. Upper abdomen: Esophagus is patulous, and is distended/fluid-filled to the level of the thoracic inlet. Partially visualized upper abdominal viscera is within normal limits. Skeletal structures: No lytic or blastic bony lesions are seen. Soft tissues: An electronic device is located in the right upper chest wall. Leads extend into the neck. IMPRESSION: 1. Streak and motion degraded examination. 2. There is no evidence of central pulmonary embolus in the main, lobar, or proximal segmental pulmonary arteries. The segmental and subsegmental branches are not well assessed. 3. Dependent airspace opacities likely represent atelectasis. Correlate clinically for evidence of a nonspecific pneumonitis. Follow up radiographically if warranted. 4. The esophagus is filled with fluid to the level of the thoracic inlet. Note that this may place the patient at risk for aspiration. 5. Additional findings as above. ACT 112: Negative or not required by law. Electronically signed by: Chung Cornelius M.D. 05/15/2024 1:35 PM ECG Additional Comments: Sinus tachycardia without acute ST segment or T wave changes Code Status & VTE Plan Code Status Full code VTE Prophylaxis Plan VTE Prophylaxis will be ordered: Yes Supervising Physician Co-Signing Physician Notes I personally saw and examined the patient. I verified all [place] points and agree with Kevyn Olmos PA-C with the following exceptions and/or additions: 48 year old male presents to the ER with chills and tremors starting today. O/E Alert, ill appearing, flat affect, HS increased rate, regular rhythm, no murmurs, Abdo SNT, no CVA tenderness resting tremor A/P Sepsis - suspected urinary source (patient intermittent self catheterizes) but high risk of aspiration in addition given fluid filled esophagus Supratherapeutic INR - no current bleeding on exam or imaging. hold warfarin and monitor daily INRs, aim INR 2-3 Elevated troponin - no chest pain or shortness of breath to suggest ACS, suspect demand-ischemia in setting of sepsis as above Fluid filled esophagus - aspiration precautions, suspect somewhat exacerbated by constipation PG Care Time/CCT Total # of Minutes Spent Total Time Spent with Patient: Total time spent is greater than 50% in coordination of care (as documented) at patient's floor/unit and/or counseling patient: [place] [address] INT INP/OBS CARE 3/75MIN Patient Type New Medical Decision Making High Complexity Diagnoses Sepsis A41.9 Sepsis acute organ dysfunction status: unspecified Sepsis type: sepsis due to unspecified organism Elevated troponin I level R79.89 Supratherapeutic INR R79.1 Hypomagnesemia E83.42 At risk for aspiration Z91.89 Acute constipation K59.00 Parkinsons G20.A1 Chronic pain G89.29 (1) Sepsis Sepsis acute organ dysfunction status: unspecified Sepsis type: sepsis due to unspecified organism Qualified Code(s): A41.9 - Sepsis, unspecified organism
[2024-05-15 15:26] LABS: Appearance Urine Cloudy (Clear); Bacteria Urine Automated 3+ (None Seen); Bilirubin Urine Negative (Negative); Blood Urine Trace (Negative); Color Urine Dark Yellow; Epithelial Cell Urine Auto 0-2 /hpf (0-2); Glucose Urine UA Negative (Negative); Ketones Urine Trace (Negative); Leukocyte Esterase Urine 1+ (Negative); Mucus Urine Present (None Prsent); Nitrite Urine Positive (Negative); Protein Urine 2+ (Negative); Specific Gravity Urine > 1.045 (1.000-1.030); Sperm Urine Present (None Prsent); Urobilinogen Urine Negative (Negative); WBC Urine Automated >50 /hpf (0-5); pH Urine 5.5 (4.5-7.5)
[2024-05-15 15:30] LABS: Adenovirus PCR Not Detected (NotDetected); Bordetella parapertussis PCR Not Detected (NotDetected); Bordetella pertussis PCR Not Detected (NotDetected); Chlamydia pneumoniae PCR Not Detected (NotDetected); Coronavirus 229E PCR Not Detected (NotDetected); Coronavirus CoV-2 (COVID19)PCR Not Detected (NotDetected); Coronavirus HKU1 PCR Not Detected (NotDetected); Coronavirus NL63 PCR Not Detected (NotDetected); Coronavirus OC43PCR Not Detected (NotDetected); Human Metapneumovirus PCR Not Detected (NotDetected); Influenza A PCR Not Detected (NotDetected); Influenza B PCR Not Detected (NotDetected); Mycoplasma pneumoniae PCR Not Detected (NotDetected); Parainfluenza Virus 1 PCR Not Detected (NotDetected); Parainfluenza Virus 2 PCR Not Detected (NotDetected); Parainfluenza Virus 3 PCR Not Detected (NotDetected); Parainfluenza Virus 4 PCR Not Detected (NotDetected); Respiratory Syncytial VirusPCR Not Detected (NotDetected); Rhinovirus/Enterovirus PCR Not Detected (NotDetected)
[2024-05-15] MEDS: DOCUSATE SODIUM 100 MG CAP PO ONE (16:44)
[2024-05-15] MEDS: MAGNESIUM SULFATE / D5W 1 GM/100 ML BAG IV SCH (16:45)
[2024-05-15] MEDS: BACLOFEN 10 MG TAB PO STA (16:45)
--- NOTE | 2024-05-15 17:02 | Electrocardiogram Report ---
Test Reason : Blood Pressure : */* mmHG Vent. Rate : 146 BPM Atrial Rate : 146 BPM P-R Int : 128 ms QRS Dur : 106 ms QT Int : 340 ms P-R-T Axes : -2 108 46 degrees QTcB Int : 529 ms Sinus tachycardia Incomplete right bundle branch block Possible Right ventricular hypertrophy Nonspecific ST and T wave abnormality Abnormal ECG No previous ECGs available Confirmed by Eduardo Mcmahon ([id number]) on 05/15/2024 5:02:09 PM Referred By: REFERRED SELF Confirmed By: Eduardo Mcmahon
[2024-05-15] MEDS: ACETAMINOPHEN 325 MG TAB PO SCH (18:38)
[2024-05-15] MEDS: DOCUSATE SODIUM 100 MG CAP PO SCH (20:14)
[2024-05-15] MEDS: ATORVASTATIN 20 MG TAB PO SCH (21:55)
[2024-05-15] MEDS: PANTOprazole 40 MG TAB PO SCH (21:55)
[2024-05-15] MEDS: PIPERACILLIN/TAZOBACTAM 4.5 GM/100 ML BAG IV STA (21:55)
[2024-05-15] MEDS: BACLOFEN 10 MG TAB PO SCH (21:55)
[2024-05-15] MEDS: [UNRECOGNIZED DRUG - OTHER] PO SCH (22:01)
[2024-05-15] MEDS: RYTARY~NON-FORMULARY PATIENT'S OWN MED PO SCH (22:01)
[2024-05-15] MEDS: oxyCODONE HCL IR 5 MG TAB (IMMEDIATE RELEASE) PO PRN (23:33)
[2024-05-16] MEDS: PIPERACILLIN/TAZOBACTAM 4.5 GM/100 ML BAG IV SCH (04:15)
[2024-05-16 05:00] LABS: Basophils # (auto) 0.01 K/uL (0.00-0.20); Basophils % (auto) 0.2 %; Eosinophils # (auto) 0.06 K/uL (0.00-0.50); Hematocrit (blood only) 41.5 % (42.0-52.0); Hemoglobin 12.9 g/dl (14.0-18.0); Immature Granulocytes # (auto) 0.01 K/uL (0.01-0.20); Immature Granulocytes % (auto) 0.2 %; Lymphocytes # (auto) 0.49 K/uL (1.20-3.40); Lymphocytes % (auto) 8.3 %; Mean Corpuscular Hemoglobin 25.6 pg (25.0-34.0); Mean Corpuscular Hgb Conc 31.1 g/dL (32.0-36.0); Mean Corpuscular Volume 82.5 fL (80.0-100.0); Mean Platelet Volume 10.9 fL (9.4-12.4); Monocytes # (auto) 0.45 K/uL (0.11-0.59); Monocytes % (auto) 7.6 %; Neutrophils % (auto) 82.7 %; Platelet Count 138 K/uL (130-400); RDW Coefficient of Variation 14.1 % (11.5-14.5); RDW Standard Deviation 42.5 fL (36.4-46.3); Red Blood Count 5.03 M/uL (4.70-6.10); White Blood Count 5.92 K/ul (4.8-10.8)
[2024-05-16 05:14] LABS: Prothrombin Time 57.4 Seconds (9.0-12.0)
[2024-05-16 05:17] LABS: Albumin Level 3.8 gm/dl (3.4-5.0); Bilirubin,Total 0.9 mg/dl (0.2-1.0); Calcium 8.3 mg/dl (8.6-10.3); Magnesium 2.4 mg/dl (1.7-2.4); Potassium 3.9 mmol/L (3.5-5.1)
[2024-05-16 05:20] LABS: INR 6.2 (0.9-1.1)
[2024-05-16 05:31] LABS: Albumin Globulin Ratio 1.2 (0.9-2); BUN Creatinine Ratio 14.8 (10-20); Creatinine Clr Calc Pharmacy 137.9 ml/min; Est GFR (African American) 122.7 ml/min; Est GFR (Non-African American) 105.8 ml/min; Globulin 3.1 gm/dl (2.5-4.0); Total Protein 6.9 gm/dl (6.0-8.3)
--- NOTE | 2024-05-16 06:24 | Electrocardiogram Report ---
Test Reason : Blood Pressure : */* mmHG Vent. Rate : 113 BPM Atrial Rate : 113 BPM P-R Int : 160 ms QRS Dur : 118 ms QT Int : 336 ms P-R-T Axes : 71 32 20 degrees QTcB Int : 460 ms Sinus tachycardia Incomplete right bundle branch block Borderline ECG When compared with ECG of 15-May-2024 11:42, QRS axis Shifted left ST no longer depressed in Inferior leads Confirmed by Eduardo Mcmahon ([id number]) on 05/15/2024 5:02:33 PM Referred By: REFERRED SELF Confirmed By: Eduardo Mcmahon
[2024-05-16] MEDS ORDERED: STAT IV Infusion **Titration per Protocol STA ×2 (06:39→09:07)
[2024-05-16] MEDS ORDERED: PROPOFOL BOLUS FROM BAG IV PRN (06:39)
--- NOTE | 2024-05-16 06:45 | Emergency Department Note ---
ED Visit Note Code purple note The patient is a 48-year-old male who was admitted yesterday for sepsis and urinary tract infection. The patient also has a history of Parkinson's. The patient reportedly got an oral medication and then had an aspiration episode. The patient was found to have very severe respiratory distress. He was evaluated by the JULIANA from the ICU. They felt the patient required advanced airway management. The patient was treated with suction and [id number]. Attempts at intubation initially were unsuccessful because the patient was still clenching his jaw. Went into the room the patient was still receiving oxygenation via [id number]. He was found to be hypertensive. He was tachycardic. The nursing staff did already drawn up Versed and rocuronium. I agree with this combination. The patient received the medications and was intubated successfully by the JULIANA from the ICU, Fady. Post the patient chest x-ray does appear to show signs of aspiration with infiltrate process noted in the left lower lobe and the right upper lobe. The endotracheal tube does appear to be in good placement. The patient is to be transferred to the ICU immediately. .
--- NOTE | 2024-05-16 06:48 | Communication Note ---
Date of Service: May 16, 2024 Code aime called overhead. Resident and valet parking attendant to bedside. Patient found to be in acute hypoxic respiratory failure of unknown cause. He desaturated to the 20s with increased work of breathing and retractions. ICU night coverage - Fady Lucero DAVIS to bedside. Nursing contacted Dr. Isbell, ED physician, who intubated the patient. ET placement confirmed with XR. Patient transferred to the ICU. Resident Activity Tracking Resident Involvement: Resident Care Provided Care Provided: Adult Hospital Medicine
[2024-05-16 07:04] LABS: iSTAT Allen Test Pass; iSTAT Art Bld Gas pCO2 Correct 52 mmHg (35-46); iSTAT Art Bld Gas pH Corrected 7.281 (7.35-7.45); iSTAT Arterial Blood Gas HCO3 24 meg/L (19-24); iSTAT Arterial Blood Gas pCO2 52 mmHg (35-46); iSTAT Arterial Blood Gas pH 7.28 (7.35-7.45); iSTAT Arterial Blood Gas pO2 157 mmHg (80-95); iSTAT Arterial Blood Gas pO2 C 157; iSTAT Carbon Dioxide 26 mmol/L (24-31); iSTAT FiO2 100 %; iSTAT Hematocrit 42 % (42-52); iSTAT Hemoglobin 14.3 g/dl (14.0-18.0); iSTAT Potassium 3.5 mmol/L (3.3-5.0); iSTAT Site L Radial; iSTAT Sodium 142 mmol/L (135-144)
--- NOTE | 2024-05-16 07:11 | Procedure Note ---
Procedure Note Date of Service May 16, 2024 INTUBATION PROCEDURE NOTE: Provider: SUSAN Diane Attending: Mary Ann Pa time-out was completed verifying correct patient, procedure, site, positioning. Patient was evaluated and required intubation for Respiratory arrest and hypoxia requiring emergent airway Sedative agent used: Versed Paralysis agent used: Rocuronium Emergent consent was implied given patient's rapidly declining clinical status and need for airway protection. The patient was prepared in the appropriate fashion. Sedation was achieved utilizing versed and rocuronium, per Dr. Isbell administration. The patient was easily ventilated using [id number] to achieve adequate oxygenation. A 7.5 Estonian endotracheal tube was placed To a depth of 25 cm at the lip with assistance of gluid-oscope and ET tube was visualized passing through the cords. The stylette was removed and balloon was inflated with 10mL of air. Appropriate Colorimetric change was appreciated. Bilateral breath sounds were heard without air sounds in the abdomen. Dr. Isbell was present for the entire procedure. Post Intubation Chest X-ray confirms placement without pneumothorax. Patient tolerated the procedure well and there were no immediate complications. [facility] [place]odes (Charges) Resuscitation Resuscitation: 83554 Endotracheal Intubation, emergency Coding CPT Codes Resuscitation - Resuscitation: 13973 Endotracheal Intubation, emergency ([id number]) Additional Codes Date of Service (PG.SURGERY)
[2024-05-16] MEDS: propofoL 1,000 MG/100 ML VIAL IV SCH (07:25)
[2024-05-16] MEDS: RAPID SEQUENCE INDUCTION BAG ONE (07:25)
--- NOTE | 2024-05-16 08:02 | XRay Report ---
SINGLE VIEW CHEST CLINICAL HISTORY: Respiratory failure. Intubation. FINDINGS: An AP, portable, supine chest radiograph is compared to chest x-ray and chest CT dated 05/15. An endotracheal tube has been placed. The tip projects approximately 4 cm above the harriett. Th e cardiomediastinal silhouette is unremarkable. Multifocal airspace consolidation seen throughout bot h lungs, greatest in the right upper lung and in the left mid to lower lung. This is significantly in creased from 05/15/2024. A left pleural effusion is suspected. No pneumothorax is seen. The bony thora x is grossly intact. An electronic device projects over the right upper chest with leads extending in to the neck. IMPRESSION: 1. An endotracheal tube has been placed as above. 2. Multifocal airspace consolidation are seen throughout both lungs, and is new from 05/15/2024. Corre late clinically for evidence of multifocal pneumonia. Radiographic follow-up to resolution is recomme nded. 3. Suspect a left pleural effusion. ACT 112: Negative or not required by law. Electronically signed by: Chung Cornelius M.D. 05/16/2024 8:01 AM
--- NOTE | 2024-05-16 08:19 | XRay Report ---
SINGLE VIEW CHEST CLINICAL HISTORY: Respiratory failure. Enteric tube placement. FINDINGS: 2 AP, portable, upright chest radiographs are compared to chest x-ray and chest CT dated . An endotracheal tube is unchanged in position. An enteric tube has been placed. The tip proj ects just below diaphragm of the proximal stomach The cardiomediastinal silhouette is unremarkable. M ultifocal airspace consolidation has partially cleared as compared to today's earlier examination. A left pleural effusion is suspected. No pneumothorax is seen. The bony thorax is grossly intact. An el ectronic device projects over the right upper chest with leads extending into the neck. IMPRESSION: 1. Endotracheal and enteric tubes are in place as above. The enteric tube should likely be advanced. 2. Multifocal airspace consolidation has partially cleared as compared to today's earlier examination . Some of this likely represented segmental atelectasis. Correlate clinically for evidence of multifo marisela pneumonia. Radiographic follow-up to resolution is recommended. 3. Suspect a left pleural effusion. ACT 112: Negative or not required by law. Electronically signed by: Chung Cornelius M.D. 05/16/2024 8:17 AM
--- NOTE | 2024-05-16 08:40 | Critical Care Consultation ---
Date of Consultation May 16, 2024 Assessment & Plan (1) Acute UTI (urinary tract infection): (2) Supratherapeutic INR: (3) Multifocal pneumonia: (4) Elevated troponin I level: (5) Sepsis: (6) Parkinsons: (7) Aspiration pneumonia: Plan Reason Critically Ill: 48-year-old male present to the hospital with complaints of generalized pain. Admitted to ICU for hypoxic respiratory failure needing intubation Past medical history: Parkinson's status post deep brain stimulator approximately 5 years ago, DVT on warfarin, chronic urinary retention with intermittent straight caths, dyslipidemia Neuro - [facility] ICU: Unable to assess Sedation with propofol and fentanyl --Parkinson's disease S/p deep brain stimulator On carbidopa levodopa as well as amantadine at home Continue with the same regimen Cardiac - -- Elevated troponin Likely type II GA Continue to trend Respiratory - -- VDRF Likely secondary to aspiration pneumonia Continue with ventilatory support Keep RASS -1 Daily sedation holidays and SBT's Continue with broad-spectrum antibiotics --COPD On Trelegy 100 at home --History of pulmonary emboli On warfarin at home GI - -- GERD On omeprazole at home RENAL/LYTES - -- Monitor BUNs/creatinine, avoid nephrotoxic medication - -- Continue with following ENDO - -- ICU hypoglycemia protocol HEME - -- Supratherapeutic INR On chronic warfarin at home ID - -- Multilobar aspiration pneumonia Continue with antibiotics with anaerobic coverage --UTI Patient has recurrent UTIs in the past Unsure if he might have resistant enterococci --Prophylaxis VTE: Warfarin GI: Pantoprazole Lines: Peripheral Diet: Tube feeds Plan: In/out: +1.9 L, urine output 2074 Continue with broad-spectrum antibiotic, follow-up nasal MRSA Will give a dose of vancomycin as the urine was dirty and history of recurrent UTIs. Hold warfarin given the supratherapeutic INR Add fentanyl to patient's regimen Follow sputum culture I have personally spent 62 minutes of critical care time in the direct management of this patient. This is a life/limb threatening event. This includes time spent evaluating patient, direct bedside care, chart review, placing orders, interpretation of diagnostic studies, discussion with consultants, patient, and family members, as well as other required patient management activities. This time is exclusive of all separately billable procedures, and teaching time and separate from and in addition to any other critical care service time. History of Present Illness Attending Physician: Huang Dumont History of Present Illness 48-year-old male present to the hospital with complaints of generalized pain Past medical history: Parkinson's status post deep brain stimulator approximately 5 years ago, DVT on warfarin, chronic urinary retention with intermittent straight caths, dyslipidemia Patient had a code purple when the patient was hypoxic, he likely aspirated. He was intubated during that time At the time of examination in the ICU he was on propofol 35, breathing with the vent, saturation was 99% on 50% FiO2, PEEP of 6 Systolic blood pressure was in the 130s. Tmax 37.8. Patient's caregiver was in the room. He was moving his upper extremities spontaneously. Social history: Used to be regular marijuana and cigarette smoker. Quit a while ago Allergies Allergy/AdvReac Type Severity Reaction Status Date / Time No Known Allergies Allergy Unverified 05/15/24 16:10 Home Medications Medication Instructions Recorded Confirmed Type albuterol sulfate 90 mcg/actuation 2 puff inhalation Q6 PRN Wheezing 05/15/24 05/15/24 History aerosol inhaler amantadine HCl 137 mg 274 mg PO HS 05/15/24 05/15/24 History capsule,extended release 24 hr (Gocovri) atorvastatin 20 mg tablet 20 mg PO HS 05/15/24 05/15/24 History baclofen 10 mg tablet 10 mg PO TID 05/15/24 05/15/24 History carbidopa ER 36.25 mg-levodopa 145 1 cap PO QID 05/15/24 05/15/24 History mg capsule,extended release (Rytary) fluticasone fur. 100 mcg-umeclid 1 ea inhalation DAILY 05/15/24 05/15/24 History 62.5 mcg-vilant 25 mcg inhalat.powder (Trelegy Ellipta) ipratropium 0.5 mg-albuterol 3 mg 3 ml inhalation Q6 05/15/24 05/15/24 History (2.5 mg base)/3 mL nebulization soln nitrofurantoin 100 mg PO QAM 05/15/24 05/15/24 History monohydrate/macrocrystals 100 mg capsule omeprazole 40 mg capsule,delayed 40 mg PO HS 05/15/24 05/15/24 History release oxycodone 30 mg tablet 30 mg PO Q4 PRN Pain 05/15/24 05/15/24 History warfarin 2 mg tablet 2 mg PO UD 05/15/24 05/15/24 History warfarin 2.5 mg tablet 2.5 mg PO UD 05/15/24 05/15/24 History Patient History Medical History Parkinsons Surgical History S/P deep brain stimulator placement Social History Smoking Status: Never smoker Hx Alcohol Use: No Hx Substance Use: No Preferred Language: Greek Communication Ability: Impaired Hand Packager Required: No Beliefs That Will Affect Care: None Current Living Situation: Family Feels Safe at Home: Yes Safety Concerns: Feels Safe At This Time Assistive Devices: Walker Review of Systems 2 Review of Systems: Unobtainable due to endotracheal tube Physical Exam 2 Physical Exam: Constitutional: No acute distress HEENT: PERRLA, positive ETT Respiratory system: Decreased air entry bilaterally, no wheeze, no rhonchi, positive crackles bilaterally CVS: S1-S2 positive, no murmurs or gallops Abdomen: Soft, nontender, nondistended, positive bowel sounds x4 Extremities: +2 pulses bilaterally radialis/ dorsalis pedis, no cyanosis, no edema Neuro: Intubated, RASS -1 Psych: Unable to assess G/U: Positive Yang Skin: no rashes, warm and dry Lymphatic: no cervical or axillary lymphadenopathy Results & Data Results & Data Vital Signs (Past 12 Hours) Vital Signs Pulse Pulse Resp BP BP Pulse Ox O2 Del Method 05/16/24 06:48 Nasal Cannula 05/16/24 06:40 94 H 20 100 05/16/24 01:00 101 H 20 124/74 94 Room Air 05/16/24 00:23 104 H 05/15/24 23:00 93 H 17 119/75 97 Room Air 05/15/24 22:45 109/83 05/15/24 22:40 111/84 05/15/24 22:39 92 H 52 H 97 Room Air 05/15/24 22:35 119/88 05/15/24 22:34 97 H 16 107/82 97 Room Air 05/15/24 22:30 94 H 52 H 96 05/15/24 22:30 123/86 05/15/24 22:25 103/63 05/15/24 22:20 107/82 05/15/24 22:18 94 H 51 H 96 05/15/24 22:15 94 H 51 H 95 05/15/24 22:11 119/87 05/15/24 22:09 52 H 95 05/15/24 22:05 129/81 05/15/24 22:05 129/81 05/15/24 22:05 129/81 05/15/24 22:05 129/81 05/15/24 22:05 129/81 05/15/24 22:03 96 H 52 H 97 05/15/24 22:00 129/88 05/15/24 22:00 129/88 05/15/24 22:00 129/88 05/15/24 21:57 96 H 52 H 97 05/15/24 21:55 123/69 05/15/24 21:55 123/69 05/15/24 21:50 108/84 05/15/24 21:48 97 H 51 H 97 Room Air 05/15/24 21:45 122/82 05/15/24 21:45 95 H 51 H 97 05/15/24 21:40 120/78 05/15/24 21:15 119/74 05/15/24 21:15 119/74 05/15/24 21:15 119/74 05/15/24 21:15 93 H 51 H 96 Room Air 05/15/24 21:10 110/75 05/15/24 21:10 110/75 05/15/24 21:09 95 H 51 H 95 05/15/24 21:05 103/76 05/15/24 21:05 103/76 05/15/24 21:05 103/76 05/15/24 21:03 95 H 51 H 96 05/15/24 21:00 97/78 L 05/15/24 21:00 97/78 L 05/15/24 20:55 99/71 L 05/15/24 20:55 99/71 L 05/15/24 20:51 109/91 05/15/24 20:46 113/74 05/15/24 20:46 113/74 05/15/24 20:40 114/75 05/15/24 20:40 114/75 05/15/24 20:40 114/75 O2 Flow Rate FiO2 05/16/24 06:48 2 05/16/24 06:40 60 05/16/24 01:00 05/16/24 00:23 05/15/24 23:00 05/15/24 22:45 05/15/24 22:40 05/15/24 22:39 05/15/24 22:35 05/15/24 22:34 05/15/24 22:30 05/15/24 22:30 05/15/24 22:25 05/15/24 22:20 05/15/24 22:18 05/15/24 22:15 05/15/24 22:11 05/15/24 22:09 05/15/24 22:05 05/15/24 22:05 05/15/24 22:05 05/15/24 22:05 05/15/24 22:05 05/15/24 22:03 05/15/24 22:00 05/15/24 22:00 05/15/24 22:00 05/15/24 21:57 05/15/24 21:55 05/15/24 21:55 05/15/24 21:50 05/15/24 21:48 05/15/24 21:45 05/15/24 21:45 05/15/24 21:40 05/15/24 21:15 05/15/24 21:15 05/15/24 21:15 05/15/24 21:15 05/15/24 21:10 05/15/24 21:10 05/15/24 21:09 05/15/24 21:05 05/15/24 21:05 05/15/24 21:05 05/15/24 21:03 05/15/24 21:00 05/15/24 21:00 05/15/24 20:55 05/15/24 20:55 05/15/24 20:51 05/15/24 20:46 05/15/24 20:46 05/15/24 20:40 05/15/24 20:40 05/15/24 20:40 Laboratory Results 05/16/24 04:05/16/24 04:01 Coding Level of Care Code 86999 CRITICAL CARE 1ST 30-74M Diagnoses Acute UTI (urinary tract infection) N39.0 Supratherapeutic INR R79.1 Multifocal pneumonia J18.9 Elevated troponin I level R79.89 Sepsis A41.9 Sepsis acute organ dysfunction status: unspecified Sepsis type: sepsis due to unspecified organism Parkinsons G20.A1 Aspiration pneumonia J69.0 Time Spent (min) 62 (5) Sepsis Sepsis acute organ dysfunction status: unspecified Sepsis type: sepsis due to unspecified organism Qualified Code(s): A41.9 - Sepsis, unspecified organism
[2024-05-16] MEDS ORDERED: NON-FORMULARY MEDICATION (Fluticasone-Umeclidin-Vilanter [Trelegy Ellipta] 100-62.5-25 mcg INH SCH (09:00)
[2024-05-16] MEDS ORDERED: fentaNYL BOLUS from BAG IV PRN (09:07)
[2024-05-16] MEDS: fentaNYL citrate 2,500 MCG/250 ML BAG IV SCH (09:17)
[2024-05-16] MEDS: fentaNYL citrate 2,500 MCG/250 ML BAG IV ONE (09:40)
[2024-05-16] MEDS: FLUTICASONE FUROATE 100MCG 14 PUFFS/INHALER INH SCH (10:12)
[2024-05-16] MEDS: UMECLIDINIUM/VILANTEROL 62.5/25MCG 7 PUFFS/INHALER INH SCH (10:12)
[2024-05-16] MEDS ORDERED: ROCURONIUM BROMIDE 10 MG/ML 5 ML VIAL IV ONE (10:21)
[2024-05-16] MEDS ORDERED: MIDAZOLAM HCL 5 MG/ML 2ML VIAL IV ONE (10:21)
[2024-05-16] MEDS ORDERED: VANCOMYCIN CONSULT ACTIVE PRN (10:35)
[2024-05-16] MEDS ORDERED: Nursing to Pharmacy Communication SCH (10:45)
[2024-05-16] MEDS: ACETAMINOPHEN 1,000 MG/100 ML VIAL IV SCH (10:50)
[2024-05-16] MEDS: PANTOprazole 40 MG in SYRINGE DAILY IV SCH (10:52)
[2024-05-16] MEDS: BUDESONIDE 0.5 MG/2 ML VIAL (PULMICORT) INH SCH (10:58)
[2024-05-16] MEDS: FORMOTEROL 20 MCG/2 ML VIAL INH SCH (10:58)
--- NOTE | 2024-05-16 11:09 | Pharmacy Report ---
Pharmacy PK ABX Note - Date of Service May 16, 2024 - Assessment and Plan Assessment 48 year old M receiving Vancomycin and Zosyn for treatment of complicated UTI. * Day #1 of antimicrobial therapy. * History of chronic UTIs but no records viewable to us. Low grade fever. No le ukocytosis but UA appears infected. * Urine and Blood cultures pending. Renal fxn stable. Plan Vancomycin * Loading dose: 2000 mg IV x 1 * Maintenance dose: 1250 mg IV every 12 hours * Regimen is predicted to achieve target AUC/DANNI of 400-600 mg/L.hr * Random level ordered for: 05/18/24 Pharmacy will continue to follow and will adjust dose/frequency as necessary. Thank you. Pharmacy has transitioned to AUC monitoring for vancomycin. AUC/DANNI is the preferred PK/PD target and is associated with decreased risk of nephrotoxicity compared to traditional trough targets.
[2024-05-16] MEDS: VANCOMYCIN HCL 2,000 MG in SODIUM CHLORIDE 0.9% 500 ML IV STA (11:16)
[2024-05-16] MEDS: PEPTAMEN INTENSE VHP 1.0 CAL 1,000 ML BAG OG SCH (11:38)
[2024-05-16] MEDS: DOCUSATE SODIUM SYRUP 100 MG/10 ML UDC PO SCH (11:42)
[2024-05-16] MEDS: POLYETHYLENE (MIRALAX) 17 GM PACK PO SCH (11:42)
[2024-05-16] MEDS: TUBE FEEDING WATER FLUSH NG SCH (11:42)
--- NOTE | 2024-05-16 14:53 | XRay Report ---
KUB CLINICAL HISTORY: Enteric tube placement. FINDINGS: 2 AP portable abdominal radiographs are correlated with abdominal CT dated 05/15/2024. An en teric tube has been placed. The tip projects below the diaphragm over the mid stomach. There is no ra diographic evidence of bowel obstruction. No evidence of intraperitoneal free air seen. There are no abnormal abdominal calcifications. A rectal temperature probe is in place. The bony structures appear intact. IMPRESSION: 1. An enteric tube has been placed as above. 2. No bowel obstruction is seen. Electronically signed by: Chung Cornelius M.D. 05/16/2024 2:52 PM
[2024-05-16] MEDS: VANCOMYCIN HCL 1,250 MG in SODIUM CHLORIDE 0.9% 250 ML IV SCH (21:19)
--- NOTE | 2024-05-16 22:11 | Hospitalist Progress Note ---
Date of Service May 16, 2024 Assessment & Plan (1) Sepsis: Plan: UTI due to intermittent straight catheterizations Multifocal pneumonia -Patient transferred to ICU overnight. required intubation Will continue broad spectrum antibiotics. -Vent management by framing and hanging (2) Elevated troponin I level: Plan: Initial high-sensitivity troponin level was 20, 2-hour repeat elevated at 235 Patient denies chest pain during my exam, no acute ST segment or T wave changes on EKG Likely due to demand from significant tachycardia and sepsis on arrival Will continue to monitor on telemetry, will continue to trend every 6 hour high-sensitivity troponin until it reaches a plateau If further current clinical concern will obtain TTE (3) Supratherapeutic INR: Plan: Patient is on warfarin due to history of DVTs in the bilateral lower extremities INR is elevated on 05/16 at 6.2 No signs of bleeding on exam or imaging Will hold warfarin for now and continue to monitor daily INR Would resume warfarin when INR is back within therapeutic range of 2.03.0 (4) Hypomagnesemia: Plan: Initial mag level of 1.6 Status post 1 g IV mag sulfate in the ED Will give an additional 2 bags 1 g IV mag sulfate on admission Monitor daily electrolytes (5) At risk for aspiration: Plan: Patient had possible signs of aspiration on chest x-ray and noted to have fluid in the esophagus. At high risk of aspiration Patient did pass bedside dysphagia screen For now we will keep him on aspiration precautions with easy to chew diet Speech therapy consult been placed for further evaluation and possible treatment recommendations (6) Acute constipation: Plan: Patient noted to have a 8.9 cm rectal stool ball on CT of abdomen pelvis No signs of obstruction on imaging Likely due to his Parkinson's disease and chronic oxycodone use for pain Will start twice daily Colace and scheduled MiraLAX, if no bowel movement overnight would recommend starting enemas tomorrow (7) Parkinsons: Plan: Patient is status post deep brain stimulator placement approximately 5 years ago Continue home carbidopa levodopa and amantadine (8) Chronic pain: Plan: Continue home Bactrim and oxycodone Admission and Anticipated Discharge Date Admission Date: May 15, 2024 Subjective Patient is intubated. Review of Systems Review of Systems: Unobtainable due to endotracheal tube Physical Exam Physical Exam: Patient is intubated and sedated. Respiratory system: Decreased breath sounds bilaterally. CVS: S1-S2 positive, no murmurs or gallops Abdomen: Soft, nontender, nondistended, positive bowel sounds x4 Extremities: +2 pulses bilaterally radialis/ dorsalis pedis, no cyanosis, no edema Results & Data Results & Data Vital Signs (Past 12 Hours) Vital Signs Temp Pulse Pulse Resp BP Pulse Ox O2 Del Method 05/16/24 22:00 71 20 118/77 98 Mechanical Vent 05/16/24 21:00 37 C 74 20 124/80 98 Mechanical Vent 05/16/24 19:34 20 05/16/24 19:34 74 20 98 Mechanical Vent 05/16/24 19:00 74 20 113/79 98 Mechanical Vent 05/16/24 18:00 37.3 C 76 20 123/82 97 Mechanical Vent 05/16/24 17:00 37.3 C 79 20 120/81 97 Mechanical Vent 05/16/24 16:00 37.4 C 79 20 115/77 96 05/16/24 15:06 37.2 C 84 20 136/89 95 Mechanical Vent 05/16/24 14:55 90 20 96 05/16/24 14:03 37.3 C 78 20 125/86 98 Mechanical Vent 05/16/24 13:27 37.4 C 80 20 132/83 99 Mechanical Vent 05/16/24 13:09 37.4 C 81 20 127/80 98 Mechanical Vent 05/16/24 12:45 37.4 C 81 20 119/81 98 Mechanical Vent 05/16/24 12:30 37.4 C 81 20 126/80 98 BiPAP 05/16/24 12:15 37.5 C 81 20 118/78 99 BiPAP 05/16/24 12:03 37.6 C H 83 20 121/84 100 BiPAP 05/16/24 11:45 37.6 C H 81 20 128/82 99 BiPAP 05/16/24 11:30 37.7 C H 81 20 118/80 97 BiPAP 05/16/24 11:15 37.7 C H 83 20 125/81 97 BiPAP 05/16/24 11:00 37.6 C H 88 20 132/88 98 BiPAP 05/16/24 10:59 87 20 97 Mechanical Vent 05/16/24 10:45 37.6 C H 87 20 126/85 99 Mechanical Vent 05/16/24 10:30 37.6 C H 87 20 131/91 98 Mechanical Vent 05/16/24 10:15 37.6 C H 90 20 144/99 H 97 Mechanical Vent 05/16/24 10:12 91 H 20 95 FiO2 05/16/24 22:00 30 05/16/24 21:00 30 05/16/24 19:34 30 05/16/24 19:34 30 05/16/24 19:00 40 05/16/24 18:00 40 05/16/24 17:00 40 05/16/24 16:00 05/16/24 15:06 40 05/16/24 14:55 30 05/16/24 14:03 40 05/16/24 13:27 40 05/16/24 13:09 40 05/16/24 12:45 40 05/16/24 12:30 40 05/16/24 12:15 40 05/16/24 12:03 40 05/16/24 11:45 40 05/16/24 11:30 40 05/16/24 11:15 40 05/16/24 11:00 40 05/16/24 10:59 40 05/16/24 10:45 40 05/16/24 10:30 40 05/16/24 10:15 40 05/16/24 10:12 40 PG Care Time/CCT Total # of Minutes Spent Total Time Spent with Patient: Total time spent is greater than 50% in coordination of care (as documented) at patient's floor/unit and/or counseling patient: Coding Level of Care Code 80672 SUB INP/OBS CARE 3/50MIN Diagnoses Sepsis A41.9 Sepsis acute organ dysfunction status: unspecified Sepsis type: sepsis due to unspecified organism Elevated troponin I level R79.89 Supratherapeutic INR R79.1 Hypomagnesemia E83.42 At risk for aspiration Z91.89 Acute constipation K59.00 Parkinsons G20.A1 Chronic pain G89.29 (1) Sepsis Sepsis acute organ dysfunction status: unspecified Sepsis type: sepsis due to unspecified organism Qualified Code(s): A41.9 - Sepsis, unspecified organism
[2024-05-17 04:51] LABS: Basophils # (auto) 0.01 K/uL (0.00-0.20); Basophils % (auto) 0.2 %; Eosinophils # (auto) 0.16 K/uL (0.00-0.50); Eosinophils % (auto) 3.3 %; Hematocrit (blood only) 38.4 % (42.0-52.0); Hemoglobin 12.3 g/dl (14.0-18.0); Immature Granulocytes # (auto) 0.01 K/uL (0.01-0.20); Immature Granulocytes % (auto) 0.2 %; Lymphocytes # (auto) 1.05 K/uL (1.20-3.40); Lymphocytes % (auto) 21.4 %; Mean Corpuscular Hemoglobin 25.8 pg (25.0-34.0); Mean Corpuscular Volume 80.7 fL (80.0-100.0); Mean Platelet Volume 10.3 fL (9.4-12.4); Monocytes % (auto) 10.2 %; Neutrophils # (auto) 3.18 K/uL (1.40-6.50); Neutrophils % (auto) 64.7 %; Platelet Count 128 K/uL (130-400); RDW Coefficient of Variation 13.8 % (11.5-14.5); RDW Standard Deviation 40.4 fL (36.4-46.3); Red Blood Count 4.76 M/uL (4.70-6.10); White Blood Count 4.91 K/ul (4.8-10.8)
[2024-05-17 04:57] LABS: INR 4.9 (0.9-1.1); Prothrombin Time 46.2 Seconds (9.0-12.0)
[2024-05-17 05:16] LABS: Albumin Globulin Ratio 1.3 (0.9-2); Albumin Level 3.4 gm/dl (3.4-5.0); BUN Creatinine Ratio 12.9 (10-20); Bilirubin,Total 0.8 mg/dl (0.2-1.0); Calcium 8.2 mg/dl (8.6-10.3); Creatinine Clr Calc Pharmacy 159.6 ml/min; Est GFR (African American) 130.3 ml/min; Est GFR (Non-African American) 112.4 ml/min; Globulin 2.6 gm/dl (2.5-4.0); Potassium 3.3 mmol/L (3.5-5.1)
[2024-05-17 05:50] LABS: iSTAT Allen Test Pass; iSTAT Art Bld Gas pCO2 Correct 32 mmHg (35-46); iSTAT Art Bld Gas pH Corrected 7.434 (7.35-7.45); iSTAT Arterial Blood Gas HCO3 22 meg/L (19-24); iSTAT Arterial Blood Gas pCO2 32 mmHg (35-46); iSTAT Arterial Blood Gas pH 7.43 (7.35-7.45); iSTAT Arterial Blood Gas pO2 88 mmHg (80-95); iSTAT Arterial Blood Gas pO2 C 88; iSTAT Carbon Dioxide 22 mmol/L (24-31); iSTAT FiO2 96 %; iSTAT Hematocrit 38 % (42-52); iSTAT Hemoglobin 12.9 g/dl (14.0-18.0); iSTAT Potassium 3.4 mmol/L (3.3-5.0); iSTAT Site R Radial; iSTAT Sodium 141 mmol/L (135-144)
[2024-05-17] MEDS: POTASSIUM CHLORIDE / WTR 10 MEQ/100 ML PLCT IV SCH (07:14)
--- NOTE | 2024-05-17 07:35 | XRay Report ---
SINGLE VIEW CHEST CLINICAL HISTORY: Respiratory failure. FINDINGS: 2 AP, portable, upright chest radiographs are compared to studies dated 05/16/2024 and corre lated with chest CT dated 05/15/2024. An endotracheal tube is unchanged in position. An enteric tube h as been advanced. The cardiomediastinal silhouette is unremarkable. Airspace opacities in the right u pper lobe almost completely cleared. There is persistent left basilar consolidation and a small left pleural effusion. No pneumothorax is seen. The bony thorax is grossly intact. An electronic device pr ojects over the right upper chest with leads extending into the neck. IMPRESSION: 1. Findings and tubes as above. 2. There is left basilar consolidation and a small left pleural effusion. 3. Airspace consolidation in the right upper lung has almost completely cleared and likely represente d atelectasis. ACT 112: Negative or not required by law. Electronically signed by: Chung Cornelius M.D. 05/17/2024 7:33 AM
--- NOTE | 2024-05-17 08:20 | Hospitalist Progress Note ---
Date of Service May 17, 2024 Assessment & Plan (1) Sepsis: Plan: #UTI due to intermittent straight catheterizations #Multifocal pneumonia - pt extubated on 05/17/24 - cont broad spectrum antibiotics -Vent management by juice weigher (2) Elevated troponin I level: Plan: Initial high-sensitivity troponin level was 20, 2-hour repeat elevated at 235 Patient denies chest pain during my exam, no acute ST segment or T wave changes on EKG Likely due to demand from significant tachycardia and sepsis on arrival Will continue to monitor on telemetry, will continue to trend every 6 hour high-sensitivity troponin until it reaches a plateau If further current clinical concern will obtain TTE (3) Supratherapeutic INR: Plan: Patient is on warfarin due to 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 At high risk of aspiration - pt coughed up a piece of ham during extubation Patient did pass bedside dysphagia screen For now we will keep him on aspiration precautions with easy to chew diet Speech therapy consult been placed for further evaluation and possible treatment recommendations (6) Acute constipation: Plan: Patient noted to have a 8.9 cm rectal stool ball on CT of abdomen pelvis No signs of obstruction on imaging Likely due to his Parkinson's disease and chronic oxycodone use for pain Will start twice daily Colace and scheduled MiraLAX, if no bowel movement overnight would recommend starting enemas tomorrow (7) Parkinsons: Plan: Patient is status post deep brain stimulator placement approximately 5 years ago Continue home carbidopa levodopa and amantadine (8) Chronic pain: Plan: Continue home baclofen and oxycodone Admission and Anticipated Discharge Date Admission Date: May 15, 2024 Subjective Patient is extubated today Review of Systems Review of Systems: Currently no complaints at this time Physical Exam Physical Exam: Gen: pt sitting in bed HEENT: NC/AT, MMM CVS: s1s2 nl, tachycardic Lungs: coarse breath sounds Abd: soft, normal BS Ext: no edema Results & Data Results & Data Vital Signs (Past 12 Hours) Vital Signs Temp Pulse Pulse Resp BP Pulse Ox O2 Del Method 05/17/24 07:25 83 18 97 Mechanical Vent 05/17/24 07:00 Mechanical Vent 05/17/24 06:00 88 18 119/80 98 Mechanical Vent 05/17/24 05:59 18 05/17/24 05:00 36.9 C 81 20 125/87 Mechanical Vent 05/17/24 04:00 36.8 C 71 20 127/89 100 Mechanical Vent 05/17/24 03:13 69 20 94 05/17/24 03:00 36.8 C 69 20 111/78 97 Mechanical Vent 05/17/24 02:00 36.8 C 70 20 118/80 97 Mechanical Vent 05/17/24 00:30 37.1 C 77 20 122/91 98 Mechanical Vent 05/16/24 23:26 71 05/16/24 22:43 20 05/16/24 22:00 71 20 118/77 98 Mechanical Vent 05/16/24 21:00 Mechanical Vent 05/16/24 21:00 37 C 74 20 124/80 98 Mechanical Vent O2 Flow Rate FiO2 05/17/24 07:25 30 05/17/24 07:00 30 05/17/24 06:00 30 05/17/24 05:59 05/17/24 05:00 30 05/17/24 04:00 30 05/17/24 03:13 30 05/17/24 03:00 30 05/17/24 02:00 30 05/17/24 00:30 30 05/16/24 23:26 05/16/24 22:43 30 05/16/24 22:00 30 05/16/24 21:00 30 05/16/24 21:00 30 PG Care Time/CCT Total # of Minutes Spent Total Time Spent with Patient: Total time spent is greater than 50% in coordination of care (as documented) at patient's floor/unit and/or counseling patient: Coding Level of Care Code 42852 SUB INP/OBS CARE 2/35MIN Diagnoses Sepsis A41.9 Sepsis acute organ dysfunction status: unspecified Sepsis type: sepsis due to unspecified organism Elevated troponin I level R79.89 Supratherapeutic INR R79.1 Hypomagnesemia E83.42 At risk for aspiration Z91.89 Acute constipation K59.00 Parkinsons G20.A1 Chronic pain G89.29 (1) Sepsis Sepsis acute organ dysfunction status: unspecified Sepsis type: sepsis due to unspecified organism Qualified Code(s): A41.9 - Sepsis, unspecified organism
[2024-05-17] MEDS ORDERED: Nursing to Pharmacy Communication SCH (10:30)
--- NOTE | 2024-05-17 10:30 | Critical Care Progress Note ---
Date of Service May 17, 2024 Assessment & Plan (1) Acute UTI (urinary tract infection): (2) Supratherapeutic INR: (3) Multifocal pneumonia: (4) Elevated troponin I level: (5) Sepsis: (6) Parkinsons: (7) Aspiration pneumonia: Plan Reason Critically Ill: 48-year-old male present to the hospital with complaints of generalized pain. Admitted to ICU for hypoxic respiratory failure needing intubation Past medical history: Parkinson's status post deep brain stimulator ap proximately 5 years ago, DVT on warfarin, chronic urinary retention with intermittent straight caths, dyslipidemia Neuro - [facility] ICU: Negative. Sedation vacation with goals of possible extubation today. --Parkinson's disease. ? Multisystem atrophy S/p deep brain stimulator On carbidopa levodopa as well as amantadine at home Continue with the same regimen Cardiac - -- Elevated troponin Likely type II [place] Troponin has plateaued. Respiratory - -- VDRF No clear signs of pneumonia at this time. Will attempt SBT once more awake from sedation vacation. Unclear if patient has had progressive respiratory muscle weakness related to his neurological disorder. Respiratory failure initially may have been due to encephalopathy related to UTI. Questionable history of COPD. CT imaging not compatible with COPD at this time. --History of pulmonary emboli On warfarin at home. Warfarin currently on hold due to supratherapeutic INR. GI - -- GERD On omeprazole at home RENAL/LYTES - -- Monitor BUNs/creatinine, avoid nephrotoxic medication - -- Follow urine output. ENDO - -- ICU hypoglycemia protocol HEME - -- Supratherapeutic INR On chronic warfarin at home ID - -- Cultures positive for urinary tract infection. Continue broad-spectrum antibiotics and follow cultures. Patient chronically on Macrobid reportedly with a history of recurrent UTIs. He straight caths at home. --Prophylaxis VTE: Supratherapeutic INR. Will reinitiate warfarin once INR improves. GI: Pantoprazole Lines: Peripheral Diet: Tube feeds will be on hold at this time. Caregiver updated at bedside. 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 Discussed on multidisciplinary rounds. CRITICAL CARE TIME I have personally spent 48 minutes of critical care time in the direct management of this patient. This is a life/limb threatening event. This includes time spent evaluating patient, direct bedside care, chart review, placing orders, interpretation of diagnostic studies, discussion with consultants, patient, and family members, as well as other required patient management activities. This time is exclusive of all separately billable procedures, and teaching time and separate from and in addition to any other critical care service time. Admission and Anticipated Discharge Date Admission Date: May 15, 2024 Subjective Patient seen and examined. Remains sedated with propofol and ventilated. Minimal ventilator settings at this time. I did discontinue propofol and he was able to follow simple commands like squeezing my fingers with bilateral hands and moving his toes. Caregiver at bedside. Review of Systems Review of Systems: Unobtainable due to endotracheal tube Physical Exam Physical Exam: Constitutional: No acute distress HEENT: PERRLA, positive ETT Respiratory system: Clear to auscultation bilaterally. Coarse lung sounds. CVS: S1-S2 positive, no murmurs or gallops Abdomen: Soft, nontender, nondistended, positive bowel sounds x4 Extremities: +2 pulses bilaterally radialis/ dorsalis pedis, no cyanosis, no edema Neuro: Intubated, following simple commands. Psych: Unable to assess G/U: Positive Yang Skin: no rashes, warm and dry Lymphatic: no cervical or axillary lymphadenopathy Results & Data Results & Data Vital Signs (Past 12 Hours) Vital Signs Temp Pulse Pulse Resp BP Pulse Ox O2 Del Method 05/17/24 07:45 81 18 95 05/17/24 07:25 83 18 97 Mechanical Vent 05/17/24 07:00 Mechanical Vent 05/17/24 06:00 88 18 119/80 98 Mechanical Vent 05/17/24 05:59 18 05/17/24 05:00 36.9 C 81 20 125/87 Mechanical Vent 05/17/24 04:00 36.8 C 71 20 127/89 100 Mechanical Vent 05/17/24 03:13 69 20 94 05/17/24 03:00 36.8 C 69 20 111/78 97 Mechanical Vent 05/17/24 02:00 36.8 C 70 20 118/80 97 Mechanical Vent 05/17/24 00:30 37.1 C 77 20 122/91 98 Mechanical Vent 05/16/24 23:26 71 05/16/24 22:43 20 O2 Flow Rate FiO2 05/17/24 07:45 30 05/17/24 07:25 30 05/17/24 07:00 30 05/17/24 06:00 30 05/17/24 05:59 05/17/24 05:00 30 05/17/24 04:00 30 05/17/24 03:13 30 05/17/24 03:00 30 05/17/24 02:00 30 05/17/24 00:30 30 05/16/24 23:26 05/16/24 22:43 30 Coding Level of Care Code 79753 CRITICAL CARE 1ST 30-74M Diagnoses Acute UTI (urinary tract infection) N39.0 Supratherapeutic INR R79.1 Multifocal pneumonia J18.9 Elevated troponin I level R79.89 Sepsis A41.9 Sepsis acute organ dysfunction status: unspecified Sepsis type: sepsis due to unspecified organism Parkinsons G20.A1 Aspiration pneumonia J69.0 (5) Sepsis Sepsis acute organ dysfunction status: unspecified Sepsis type: sepsis due to unspecified organism Qualified Code(s): A41.9 - Sepsis, unspecified organism
[2024-05-17] MEDS ORDERED: methylPREDNISolone 125 MG/2 ML VIAL IV STA (12:41)
[2024-05-17] MEDS: methylPREDNISolone 125 MG/2 ML VIAL ONE (12:58)
[2024-05-17] MEDS ORDERED: RACEPINEPHRINE 2.25% NEBU SOLN 0.5 ML VIAL NEB STA (12:58)
[2024-05-17] MEDS: RACEPINEPHRINE 2.25% NEBU SOLN 0.5 ML VIAL ONE (13:04)
[2024-05-17] MEDS: ACETAMINOPHEN 1,000 MG/100 ML VIAL IV STA (17:48)
[2024-05-18] MEDS: ACETAMINOPHEN 1,000 MG/100 ML VIAL IV STA (03:58)
[2024-05-18 05:15] LABS: Basophils # (auto) 0.01 K/uL (0.00-0.20); Basophils % (auto) 0.2 %; Hematocrit (blood only) 42.1 % (42.0-52.0); Hemoglobin 13.3 g/dl (14.0-18.0); Immature Granulocytes # (auto) 0.02 K/uL (0.01-0.20); Immature Granulocytes % (auto) 0.4 %; Lymphocytes # (auto) 1.04 K/uL (1.20-3.40); Lymphocytes % (auto) 18.2 %; Mean Corpuscular Hemoglobin 25.5 pg (25.0-34.0); Mean Corpuscular Hgb Conc 31.6 g/dL (32.0-36.0); Mean Corpuscular Volume 80.7 fL (80.0-100.0); Mean Platelet Volume 10.8 fL (9.4-12.4); Monocytes # (auto) 0.67 K/uL (0.11-0.59); Monocytes % (auto) 11.7 %; Neutrophils # (auto) 3.97 K/uL (1.40-6.50); Neutrophils % (auto) 69.5 %; Platelet Count 162 K/uL (130-400); RDW Coefficient of Variation 13.7 % (11.5-14.5); RDW Standard Deviation 40.3 fL (36.4-46.3); Red Blood Count 5.22 M/uL (4.70-6.10); White Blood Count 5.71 K/ul (4.8-10.8)
[2024-05-18 05:21] LABS: INR 2.5 (0.9-1.1); Prothrombin Time 25.2 Seconds (9.0-12.0)
[2024-05-18 05:31] LABS: Albumin Globulin Ratio 1.1 (0.9-2); Albumin Level 3.7 gm/dl (3.4-5.0); BUN Creatinine Ratio 15.6 (10-20); Bilirubin,Total 0.6 mg/dl (0.2-1.0); Calcium 9.2 mg/dl (8.6-10.3); Creatinine Clr Calc Pharmacy 172.3 ml/min; Est GFR (African American) 135.1 ml/min; Est GFR (Non-African American) 116.6 ml/min; Globulin 3.3 gm/dl (2.5-4.0); Magnesium 2.1 mg/dl (1.7-2.4); Phosphorus 3.8 mg/dl (2.5-4.9)
--- NOTE | 2024-05-18 08:09 | Hospitalist Progress Note ---
Date of Service May 18, 2024 Assessment & Plan (1) Sepsis: (2) Elevated troponin I level: (3) Supratherapeutic INR: (4) Hypomagnesemia: (5) At risk for aspiration: (6) Acute constipation: (7) Parkinsons: (8) Chronic pain: Plan #Sepsis: #UTI due to intermittent straight catheterizations #Multifocal pneumonia - pt extubated on 05/17/24 - cont broad spectrum antibiotics #Elevated troponin I level: Initial high-sensitivity troponin level was 20, 2-hour repeat elevated at 235 (peak), subsequently trended down Patient denies chest pain during my exam, no acute ST segment or T wave changes on EKG Likely due to demand from significant tachycardia and sepsis on arrival continue to monitor on telemetry If further current clinical concern will obtain TTE #Supratherapeutic INR: resolved Patient is on warfarin due to 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 At high risk of aspiration - pt coughed up a piece of ham during extubation cont aspiration precautions Speech therapy consult been placed for further evaluation and possible tr eatment recommendations #Acute constipation: Patient noted to have a 8.9 cm rectal stool ball on CT of abdomen pelvis No signs of obstruction on imaging Likely due to his Parkinson's disease and chronic oxycodone use for pain Will start twice daily Colace and scheduled MiraLAX, if no bowel movement overnight would recommend starting enemas tomorrow #Parkinsons: Patient is status post deep brain stimulator placement approximately 5 years ago Continue home carbidopa levodopa and amantadine #Chronic pain: Continue home baclofen and oxycodone Admission and Anticipated Discharge Date Admission Date: May 15, 2024 Subjective Pt extubated yesterday Currently on RA c/o left side hip pain some improvement with pain regimen Review of Systems Review of Systems: Currently no complaints at this time Physical Exam Physical Exam: Gen: pt sitting in bed HEENT: NC/AT, MMM CVS: s1s2 nl, tachycardic Lungs: coarse breath sounds Abd: soft, normal BS Ext: no edema Results & Data Results & Data Vital Signs (Past 12 Hours) Vital Signs Temp Pulse Pulse Resp BP Pulse Ox O2 Del Method 05/18/24 08:01 37.2 C 97 H 20 144/100 H 100 Room Air 05/18/24 07:42 76 14 98 Room Air 05/18/24 06:57 37.1 C 94 H 21 130/93 94 Room Air 05/18/24 06:00 36.9 C 96 H 117/90 95 Room Air 05/18/24 05:00 37.2 C 93 H 20 135/86 96 05/18/24 03:00 97 H 22 115/87 95 Room Air 05/18/24 02:03 96 H 05/18/24 02:00 95 H 05/18/24 01:00 37.2 C 102 H 24 129/79 94 Room Air 05/18/24 00:00 94 H 20 121/79 95 Room Air 05/17/24 22:00 37.7 C H 103 H 24 143/92 H 95 05/17/24 21:00 38.0 C H 113 H 22 139/90 97 PG Care Time/CCT Total # of Minutes Spent Total Time Spent with Patient: Total time spent is greater than 50% in coordination of care (as documented) at patient's floor/unit and/or counseling patient: Coding Level of Care Code 84257 SUB INP/OBS CARE 2/35MIN Diagnoses Sepsis A41.9 Sepsis acute organ dysfunction status: unspecified Sepsis type: sepsis due to unspecified organism Elevated troponin I level R79.89 Supratherapeutic INR R79.1 Hypomagnesemia E83.42 At risk for aspiration Z91.89 Acute constipation K59.00 Parkinsons G20.A1 Chronic pain G89.29 (1) Sepsis Sepsis acute organ dysfunction status: unspecified Sepsis type: sepsis due to unspecified organism Qualified Code(s): A41.9 - Sepsis, unspecified organism
[2024-05-18] MEDS: HYDROmorphone INJ 0.5 MG/0.5 ML SYR IV STA (08:27)
--- NOTE | 2024-05-18 10:24 | Pulmonology Progress Note ---
Date of Service May 18, 2024 Assessment & Plan (1) Multifocal pneumonia: Plan: Patient currently on Zosyn for a UTI which will treat multifocal pneumonia and aspiration. Yesterday, when he was extubated a large piece of meat was removed from his airway. Speech therapy consult appreciated. Continue CoughAssist. Would treat aspiration pneumonia with antibiotics for total of 10 days. (2) Aspiration pneumonia: Plan: See comments above. (3) Parkinsons: Plan: Patient with Parkinson's and follows with neurology in [place]. Continue home medications for Parkinson's. Plan No further recommendations at this time. Thank you for allowing me to participate in the care of this patient. Admission and Anticipated Discharge Date Admission Date: May 15, 2024 Subjective Patient extubated yesterday and doing quite well today. Taking clear liquids as recommended by speech therapy. Patient in good spirits. Currently saturating well on room air denies any chest pain or shortness of breath. Review of Systems Review of Systems: Review of systems somewhat limited due to patient's nonverbal state. Physical Exam Physical Exam: Constitutional: No acute distress. Well-developed. HEENT: PERRLA, normal oropharynx. Respiratory system: Clear to auscultation bilaterally. Coarse lung sounds. CVS: S1-S2 positive, no murmurs or gallops Abdomen: Soft, nontender, nondistended, positive bowel sounds x4 Extremities: +2 pulses bilaterally radialis/ dorsalis pedis, no cyanosis, no edema Neuro: Patient is nonverbal at baseline. Follows all commands. Moves extremities. Nonfocal otherwise. Psych: Unable to assess G/U: Positive Yang Skin: no rashes, warm and dry Lymphatic: no cervical or axillary lymphadenopathy Results & Data Results & Data Vital Signs (Past 12 Hours) Vital Signs Temp Pulse Pulse Resp BP Pulse Ox O2 Del Method 05/18/24 10:00 37.5 C 105 H 20 147/92 H 97 Room Air 05/18/24 09:00 37.3 C 106 H 20 138/100 98 Room Air 05/18/24 08:01 37.2 C 97 H 20 144/100 H 100 Room Air 05/18/24 07:42 76 14 98 Room Air 05/18/24 06:57 37.1 C 94 H 21 130/93 94 Room Air 05/18/24 06:00 36.9 C 96 H 117/90 95 Room Air 05/18/24 05:00 37.2 C 93 H 20 135/86 96 05/18/24 03:00 97 H 22 115/87 95 Room Air 05/18/24 02:03 96 H 05/18/24 02:00 95 H 05/18/24 01:00 37.2 C 102 H 24 129/79 94 Room Air 05/18/24 00:00 94 H 20 121/79 95 Room Air PG Care Time/CCT Total # of Minutes Spent Total Time Spent with Patient: Total time spent is greater than 50% in coordination of care (as documented) at patient's floor/unit and/or counseling patient: Coding Level of Care Code 58619 SUB INP/OBS CARE 2/35MIN Diagnoses Multifocal pneumonia J18.9 Aspiration pneumonia J69.0 Parkinsons G20.A1
[2024-05-18] MEDS: WARFARIN SOD 3 MG TAB PO SCH (17:01)
[2024-05-18] MEDS: oxyCODONE HCL IR 30 MG TAB (IMMEDIATE RELEASE) PO PRN (20:48)
[2024-05-19] MEDS: ACETAMINOPHEN 1,000 MG/100 ML VIAL IV PRN (02:48)
[2024-05-19 04:56] LABS: Basophils # (auto) 0.02 K/uL (0.00-0.20); Basophils % (auto) 0.3 %; Eosinophils # (auto) 0.15 K/uL (0.00-0.50); Eosinophils % (auto) 2.1 %; Hematocrit (blood only) 41.6 % (42.0-52.0); Hemoglobin 13.1 g/dl (14.0-18.0); Immature Granulocytes # (auto) 0.03 K/uL (0.01-0.20); Immature Granulocytes % (auto) 0.4 %; Lymphocytes # (auto) 2.31 K/uL (1.20-3.40); Lymphocytes % (auto) 32.9 %; Mean Corpuscular Hemoglobin 25.6 pg (25.0-34.0); Mean Corpuscular Hgb Conc 31.5 g/dL (32.0-36.0); Mean Corpuscular Volume 81.3 fL (80.0-100.0); Mean Platelet Volume 9.6 fL (9.4-12.4); Monocytes # (auto) 0.71 K/uL (0.11-0.59); Monocytes % (auto) 10.1 %; Neutrophils # (auto) 3.81 K/uL (1.40-6.50); Neutrophils % (auto) 54.2 %; Platelet Count 168 K/uL (130-400); RDW Coefficient of Variation 13.8 % (11.5-14.5); RDW Standard Deviation 40.4 fL (36.4-46.3); Red Blood Count 5.12 M/uL (4.70-6.10); White Blood Count 7.03 K/ul (4.8-10.8)
[2024-05-19 05:06] LABS: INR 3.7 (0.9-1.1); Prothrombin Time 35.9 Seconds (9.0-12.0)
[2024-05-19 05:22] LABS: BUN Creatinine Ratio 18.7 (10-20); Calcium 9.2 mg/dl (8.6-10.3); Creatinine Clr Calc Pharmacy 145.6 ml/min; Est GFR (African American) 126.6 ml/min; Est GFR (Non-African American) 109.2 ml/min; Magnesium 1.9 mg/dl (1.7-2.4); Phosphorus 3.4 mg/dl (2.5-4.9); Potassium 3.6 mmol/L (3.5-5.1)
--- NOTE | 2024-05-19 07:43 | Hospitalist Progress Note ---
Date of Service May 19, 2024 Assessment & Plan (1) Sepsis: (2) Elevated troponin I level: (3) Supratherapeutic INR: (4) Hypomagnesemia: (5) At risk for aspiration: (6) Acute constipation: (7) Parkinsons: (8) Chronic pain: Plan #Sepsis: #UTI due to intermittent straight catheterizations #Multifocal pneumonia - pt extubated on 05/17/24 - UCx growing E coli, per discussion with ID pharmacist, transitioned zosyn to Amox/Clauv 800mg/10ml BID (last dose AM 05/25) - BCx negative #Elevated troponin I level: Initial high-sensitivity troponin level was 20, 2-hour repeat elevated at 235 (peak), subsequently trended down Patient denies chest pain during my exam, no acute ST segment or T wave changes on EKG Likely due to demand from significant tachycardia and sepsis on arrival continue to monitor on telemetry If further current clinical concern will obtain TTE #Supratherapeutic INR: Patient is on warfarin due to 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 At high risk of aspiration - pt coughed up a piece of ham during extubation cont aspiration precautions Speech therapy on board, awaiting VFSS results and final recs #Acute constipation: Patient noted to have a 8.9 cm rectal stool ball on CT of abdomen pelvis No signs of obstruction on imaging Likely due to his Parkinson's disease and chronic oxycodone use for pain Cont twice daily Colace and scheduled MiraLAX, if no bowel movement overnight would recommend starting enemas tomorrow #Parkinsons: Patient is status post deep brain stimulator placement approximately 5 years ago Continue home carbidopa levodopa and amantadine #Chronic pain: Continue home baclofen and oxycodone #DVT ppx: on warfarin, INR supratherapeutic #Dispo: pls call PCP prior to discharge ([phone]) with final recs caregiver also updated Admission and Anticipated Discharge Date Admission Date: May 15, 2024 Subjective Currently on RA Overall stable No new complaints Review of Systems Review of Systems: Currently no complaints at this time Physical Exam Physical Exam: Gen: pt sitting in bed HEENT: NC/AT, MMM CVS: s1s2 nl, tachycardic Lungs: coarse breath sounds Abd: soft, normal BS MSK: slow movement Ext: no edema Results & Data Results & Data Vital Signs (Past 12 Hours) Vital Signs Temp Pulse Pulse Resp BP Pulse Ox O2 Del Method 05/19/24 07:27 97 H 22 98 Room Air 05/19/24 04:00 37.8 C H 101 H 18 117/77 94 Room Air 05/19/24 00:00 104 H 05/18/24 23:00 37.9 C H 103 H 20 126/88 95 Room Air 05/18/24 20:31 100 H 20 98 Room Air FiO2 05/19/24 07:27 21 05/19/24 04:00 05/19/24 00:00 05/18/24 23:00 05/18/24 20:31 PG Care Time/CCT Total # of Minutes Spent Total Time Spent with Patient: Total time spent is greater than 50% in coordination of care (as documented) at patient's floor/unit and/or counseling patient: Coding Level of Care Code 63676 SUB INP/OBS CARE 2/35MIN Diagnoses Sepsis A41.9 Sepsis acute organ dysfunction status: unspecified Sepsis type: sepsis due to unspecified organism Elevated troponin I level R79.89 Supratherapeutic INR R79.1 Hypomagnesemia E83.42 At risk for aspiration Z91.89 Acute constipation K59.00 Parkinsons G20.A1 Chronic pain G89.29 (1) Sepsis Sepsis acute organ dysfunction status: unspecified Sepsis type: sepsis due to unspecified organism Qualified Code(s): A41.9 - Sepsis, unspecified organism
[2024-05-19] MEDS: MAGNESIUM OXIDE 400 MG TAB PO ONE (08:24)
--- NOTE | 2024-05-19 15:31 | Fluoroscopy Report ---
FL video swallow HISTORY: assess for aspiration TECHNIQUE: Video fluoroscopic evaluation of swallowing was performed in the AP and lateral projection s by the speech pathology staff. The patient is fed thin liquid barium, and barium pudding. FLUOROSCOPY TIME: 2 minutes and 2 seconds. A cine loop submitted. Ka,r: 7.93 mGy COMPARISON STUDY: None. FINDINGS: Severe delayed oral transit of barium with delayed initiation of swallowing and premature s pillover. There is highly excursion and epiglottic deflection during swallowing without evidence for significant penetration or aspiration. Of note, the patient was unable to swallow the barium pudding. IMPRESSION: 1. No aspiration identified. However, there is severe delayed oral transit of barium with delayed ini tiation of swallowing. 2. Please see the speech pathologist report for detailed findings and recommendations. ACT 112: Negative or not required by law. Electronically signed by: Greg Flores M.D. 05/19/2024 3:30 PM
[2024-05-19] MEDS: METOPROLOL TARTRATE 25 MG TAB PO SCH (21:27)
[2024-05-19] MEDS: AMOXICILLIN/CLAVULANATE SUSP 400/57 MG 5 ML BTL PO SCH (21:51)
[2024-05-20 06:24] LABS: INR 3.4 (0.9-1.1); Prothrombin Time 32.8 Seconds (9.0-12.0)
--- NOTE | 2024-05-20 07:48 | Hospitalist Progress Note ---
Date of Service May 20, 2024 Assessment & Plan (1) Sepsis: Plan: Present on admission, catheter(intermittent straight cath) associated uti is source - UCx growing E coli, per discussion with ID pharmacist, transitioned zosyn to Amox/Clauv 800mg/10ml BID (last dose AM 05/25) - BCx negative Multifocal pneumonia, acute respiratory failure required intubation, pt extubated on 05/17/24 Patient had possible signs of aspiration on chest x-ray and noted to have fluid in the esophagus. 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 No signs of bleeding on exam or imaging INR is elevated on 05/16 at 6.2, trended down to 2.5, but back up to 3.7 after 3mg warfarin, will hold warfarin now, resume lower dose once INR is therapeutic (4) Parkinsons: Plan: Parkinsons: Patient is status post deep brain stimulator placement approximately 5 years ago Continue home carbidopa levodopa and amantadine (5) Acute constipation: Plan: Acute constipation: Patient noted to have a 8.9 cm rectal stool ball on CT of abdomen pelvis No signs of obstruction on imaging Likely due to his Parkinson's disease and chronic oxycodone use for pain Cont twice daily Colace and scheduled MiraLAX, if no bowel movement overnight would consider starting enemas for Chronic pain: Continue home baclofen and oxycodone- could be contributing to constipation Plan Dispo: pls call PCP prior to discharge ([phone]) with final recs caregiver also updated, plan to return to [facility] with outpt PT there Admission and Anticipated Discharge Date Admission Date: May 15, 2024 Subjective pt is a difficult communicator, can write to communicate, no focal complaints at this time INR still elevated Physical Exam Physical Exam: awake and stable, non verbal but can communicate with writing Results & Data Results & Data Vital Signs (Past 12 Hours) Vital Signs Temp Pulse Pulse Resp BP Pulse Ox O2 Del Method 05/20/24 07:16 85 16 96 Room Air 05/20/24 05:06 98.4 F 81 95 05/20/24 04:03 98.4 F 84 95 05/20/24 04:00 117/80 05/20/24 03:57 98.4 F 78 97 05/20/24 03:03 98.4 F 80 97 05/20/24 02:27 98.4 F 84 97 05/20/24 01:51 98.4 F 76 97 05/20/24 00:00 98.4 F 77 97 05/20/24 00:00 113/81 05/19/24 23:00 98.4 F 85 96 05/19/24 22:00 98.8 F 82 20 100 05/19/24 21:09 99.1 F 89 98 05/19/24 20:06 99.1 F 87 96 05/19/24 20:00 134/88 05/19/24 20:00 134/88 05/19/24 20:00 Room Air 05/19/24 19:51 99.3 F 88 100 05/19/24 19:43 89 18 98 Room Air Laboratory Results review inr, hold warfarin PG Care Time/CCT Total # of Minutes Spent Total Time Spent with Patient: Total time spent is greater than 50% in coordination of care (as documented) at patient's floor/unit and/or counseling patient: Coding Level of Care Code 25447 SUB INP/OBS CARE 2/35MIN Diagnoses Sepsis A41.9 Sepsis acute organ dysfunction status: unspecified Sepsis type: sepsis due to unspecified organism Elevated troponin I level R79.89 Supratherapeutic INR R79.1 Parkinsons G20.A1 Acute constipation K59.00 (1) Sepsis Sepsis acute organ dysfunction status: unspecified Sepsis type: sepsis due to unspecified organism Qualified Code(s): A41.9 - Sepsis, unspecified organism
[2024-05-21 05:26] LABS: INR 1.7 (0.9-1.1); Prothrombin Time 17.2 Seconds (9.0-12.0)
--- NOTE | 2024-05-21 07:18 | Hospitalist Progress Note ---
Date of Service May 21, 2024 Assessment & Plan (1) Sepsis: Plan: Present on admission, catheter(intermittent straight cath) associated uti is source - UCx growing E coli, per discussion with ID pharmacist, transitioned zosyn to Amox/Clauv 800mg/10ml BID (last dose AM 05/25) - BCx negative Multifocal pneumonia, acute respiratory failure required intubation, pt extubated on 05/17/24 Patient had possible signs of aspiration on chest x-ray and noted to have fluid in the esophagus. 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 No signs of bleeding on exam or imaging did have supratherapeutic INR, now 1.7, will resume coumadin at lower dose may need 1.5 alt with 2 (4) Parkinsons: Plan: Parkinsons: Patient is status post deep brain stimulator placement approximately 5 years ago Continue home carbidopa levodopa and amantadine (5) Acute constipation: Plan: Acute constipation: Patient noted to have a 8.9 cm rectal stool ball on CT of abdomen pelvis No signs of obstruction on imaging Likely due to his Parkinson's disease and chronic oxycodone use for pain Cont twice daily Colace and scheduled MiraLAX, if no bowel movement overnight would consider starting enemas for Chronic pain: Continue home baclofen and oxycodone- could be contributing to constipation Plan Dispo: pls call PCP prior to discharge ([phone]) with final recs caregiver also updated, plan to return to [facility] with outpt PT there Admission and Anticipated Discharge Date Admission Date: May 15, 2024 Subjective pt is a difficult communicator, can write to communicate, no focal complaints at this time INR still elevated Physical Exam Physical Exam: awake and stable, non verbal but can communicate with writing Results & Data Results & Data Vital Signs (Past 12 Hours) Vital Signs Temp Pulse Pulse Resp BP Pulse Ox O2 Del Method 05/21/24 06:59 86 16 98 Room Air 08/28/24 03:15 97.3 F L 82 98 05/21/24 03:00 117/84 05/21/24 00:00 96/75 L 05/21/24 00:00 96/75 L 05/20/24 23:57 97.7 F 82 99 05/20/24 23:00 98.4 F 85 97 05/20/24 23:00 103/71 05/20/24 22:06 98.4 F 83 99 05/20/24 22:00 101/74 05/20/24 22:00 101/74 05/20/24 22:00 101/74 05/20/24 20:37 89 16 98 Room Air Laboratory Results review cbc review chemistry updated family at bedside PG Care Time/CCT Total # of Minutes Spent Total Time Spent with Patient: Total time spent is greater than 50% in coordination of care (as documented) at patient's floor/unit and/or counseling patient: Coding Level of Care Code 48707 SUB INP/OBS CARE 2/35MIN Diagnoses Sepsis A41.9 Sepsis acute organ dysfunction status: unspecified Sepsis type: sepsis due to unspecified organism Elevated troponin I level R79.89 Supratherapeutic INR R79.1 Parkinsons G20.A1 Acute constipation K59.00 (1) Sepsis Sepsis acute organ dysfunction status: unspecified Sepsis type: sepsis due to unspecified organism Qualified Code(s): A41.9 - Sepsis, unspecified organism
[2024-05-21 07:58] LABS: BUN Creatinine Ratio 28.8 (10-20); Calcium 9.2 mg/dl (8.6-10.3); Est GFR (African American) 133.4 ml/min; Est GFR (Non-African American) 115.1 ml/min; Potassium 3.9 mmol/L (3.5-5.1)
[2024-05-21 08:05] LABS: Hematocrit (blood only) 43.7 % (42.0-52.0); Hemoglobin 14.1 g/dl (14.0-18.0); Mean Corpuscular Hgb Conc 32.3 g/dL (32.0-36.0); Mean Corpuscular Volume 80.5 fL (80.0-100.0); Mean Platelet Volume 10.5 fL (9.4-12.4); Platelet Count 213 K/uL (130-400); RDW Coefficient of Variation 13.8 % (11.5-14.5); RDW Standard Deviation 39.9 fL (36.4-46.3); Red Blood Count 5.43 M/uL (4.70-6.10)
[2024-05-21] MEDS ORDERED: SODIUM CHLORIDE 0.9% 10ML FLUSH IV ONE (10:24)
[2024-05-21] MEDS: WARFARIN SOD 2 MG TAB PO SCH (16:17)
[2024-05-22 05:20] LABS: INR 1.2 (0.9-1.1); Prothrombin Time 12.8 Seconds (9.0-12.0)
[2024-05-22 07:15] VITALS: PULSE 86; RESP 18; O2SAT 94
[2024-05-22] MEDS: WARFARIN SOD 5 MG TAB PO ONE (08:09)
[2024-05-22 09:26] VITALS: BP 126/84; TEMP 98.4
--- NOTE | 2024-05-22 17:18 | Discharge Summary ---
Discharge Summary Date of Service May 22, 2024 Principal Dx & Hospital Course #1 = Principal Diagnosis (1) Sepsis: Present on admission, catheter(intermittent straight cath) associated uti is source - UCx growing E coli, per discussion with ID pharmacist, transitioned zosyn to Amox/Clauv 800mg/10ml BID (last dose AM 05/25) - BCx negative Multifocal pneumonia, acute respiratory failure required intubation, pt extubated on 05/17/24 Patient had possible signs of aspiration on chest x-ray and noted to have fluid in the esophagus. 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 No signs of bleeding on exam or imaging did have supratherapeutic INR, now 1.7, will resume coumadin at home doses with close monitoring (4) Parkinsons: Parkinsons: Patient is status post deep brain stimulator placement approximately 5 years ago Continue home carbidopa levodopa and amantadine (5) Acute constipation: Acute constipation: Patient noted to have a 8.9 cm rectal stool ball on CT of abdomen pelvis No signs of obstruction on imaging Likely due to his Parkinson's disease and chronic oxycodone use for pain Cont twice daily Colace and scheduled MiraLAX, if no bowel movement overnight would consider starting enemas for Chronic pain: Continue home baclofen and oxycodone- could be contributing to constipation Plan PCP ([phone]) caregiver also updated, plan to return to [facility] with outpt PT there Notes For Next Care Provider new start metoprolol complete antibiotics Admission HPI Per Admitting Provider Nick is a 48-year-old male with a past medical history significant for Parkinson's disease status post deep brain stimulator placement (approximately 5 years ago), previous DVT (on warfarin), chronic urinary retention with intermittent straight cath requirements and recurrent UTIs, hyperlipidemia, chronic pain who presented to the [facility] ED on 05/15/2024 with his caregiver due to complaints of generalized pain. On arrival to the ED he was noted to have a fever of 37.8 Celsius, was tachycardic with sinus tachycardia in the 150s, tachypneic with respirations reported in the 50s, hypotensive at 82/58, and stable on room air. Labs were significant for a leukopenia of 4.61, INR of 4.7, VBG pH of 7.34 with pCO2 of 39 and pO2 of 71, anion gap of 12 with bicarb within normal limits, ionized calcium of 1.09, mag of 1.6, total bili of 1.1 with direct bili of 0.3 but with AST and ALT within normal limits, Pro-Titus of 10, initial high-sensitivity troponin of 20 with 2- hour repeat of 235, UA consistent with infection, and full respiratory BioFire negative. Chest x-ray was read as patchy densities within the base of the left lower lobe may represent atelectasis or pneumonia. Mild central pulmonary vascular congestion without overt edema. CTA of the chest was read as streak and motion degraded examination. There is no evidence of central pulmonary embolus in the main, lobar, or proximal segmental pulmonary arteries. This leg [place] subsegmental branches are not well assessed. Dependent airspace opacities likely represent atelectasis correlate clinically for evidence of a nonspecific pneumonitis. Follow-up radiographically if warranted. The esophagus is filled with fluid to the level of the thoracic and. Note this may place the patient at risk of aspiration. CT of the abdomen pelvis with IV contrast was read as questionable mild ending adjacent to a of the distal ileal [place] versus artifact. This could represent an early acute ileal diverticulitis. No evidence of bowel obstruction. Moderate fecal retention including an 8.9 cm rectal stool ball. Bibasilar densities favor atelectasis/dependent change. A low-grade pneumonitis also remains in the differential diagnosis. No hydronephrosis. Prior to admission the patient was given 2.5 L NSS, a dose of cefepime, 1 g IV Tylenol, 4 mg IV morphine, 4 mg IV Zofran, and 1 g IV mag sulfate. Patient was lying in bed in no acute distress at time of exam with his caregiver bedside, history is obtained from both. The patient is essentially nonverbal at baseline, can sometimes answer yes or no to questions but typically uses his phone notepad lindy to communicate. His caregiver explains that they traveled from [place] to [place] today as she needed to move her daughter into the dorms as she is a freshman at [employer]. She states that the patient had been in his normal state of health this morning and was able to walk to the car with limited help, he does sometimes use a walker or cane for ambulation. She explains that when they arrived in [place] the patient was complaining of generalized pain and feeling very cold which is not normal f or him. He had increased generalized weakness and was very weak on his legs which is why she brought him to the ED for further evaluation. Patient explains that he has generalized pain, earlier he had pain in the left lower quadrant but explains that this has subsequently resolved. Has chronic neck pain but nothing new. The patient has history of recurrent UTIs due to urinary retention requiri ng intermittent straight cathing. He has been on suppressive Macrobid therapy for the last few months. When asked, the patient denies current headache, chest pain, shortness of breath, nausea/vomiting, diarrhea, or recent trauma. When asked, his caregiver explains that the patient has had a significant amount of secretions recently but is unsure if he is aspirated anything in the recent past. They confirmed the patient is a full code and his caregiver, Viviana, is his primary decision-maker if he cannot make decisions himself. Please refer to Dr. Mathis's attestation for any changes to the treatment plan Discharge Exam pt looks stable, is in good state according to family abd is soft and non tender lungs are diminished Discharge Plan Discharge Items Patient Disposition: Home - Home Health Services Reason For Visit: SEPSIS, UTI, TACHYCARDIA, ELEVATED TROP Discharge Diagnosis: sepsis, pneumonia, urinary tract infection poa foreign body in airway elevated INR Parkinsons disease Activity: Resume your previous activity Non-emergency contact: Primary Care Provider Call non-emergency contact if: your symptoms worsen Follow-up/Referrals: PCP,NO [Primary Care Provider] - Diet: Regular Diet Texture: Pureed (blended smooth) Addtl Attending Provider Instructions: You were admitted in severe distress with infections and did require support of your breathing with intubation/ventilation. Upon intubation some food debris was suctioned from airway. You are finishing treatment for both urinary infection and a aspiration pneumonia. You had some constipation likely related to your Parkinson's disease and this had been remedied during her hospital stay. Likely because of your illness and antibiotics your blood thinner level went very high however this was now normalized and we are resuming your home medications as long as your outpatient doctor can follow-up with that 3 procedures of a racing heartbeat your [place] on a new blood pressure medication which be continued twice a day We discussed you going to rehabilitation however after discussions with family it strongly felt that they take good care of you at home with outpatient physical therapy Pending Studies at Discharge: No Stand-Alone Forms: My [facility] [employer], Smoking Cessation Medications and DC Order Prescriptions: New amoxicillin-pot clavulanate 400-57 mg/5 mL Suspension For Reconstitution 10 ml PO BID Qty: 120 0RF metoprolol tartrate 25 mg Tablet 12.5 mg PO BID Qty: 30 3RF Continued ipratropium-albuterol 0.5 mg-3 mg(2.5 mg base)/3 mL solution for nebulization 3 ml INHALATION Q6 omeprazole 40 mg capsule,delayed release(DR/EC) 40 mg PO HS oxycodone 30 mg tablet 30 mg PO Q4 PRN (Reason: Pain) atorvastatin 20 mg tablet 20 mg PO HS baclofen 10 mg tablet 10 mg PO TID Gocovri 137 mg capsule,extended release 24hr 274 mg PO HS Rx Instructions: 2 TABLET DOSE albuterol sulfate 90 mcg/actuation HFA aerosol inhaler 2 puff INHALATION Q6 PRN (Reason: Wheezing) Rytary 36.25-145 mg capsule, extended release 1 cap PO QID Trelegy Ellipta 100-62.5-25 mcg blister with device 1 ea INHALATION DAILY warfarin 2.5 mg tablet 2.5 mg PO UD Rx Instructions: DIRECTED BY [facility] warfarin 2 mg tablet 2 mg PO UD Rx Instructions: DIRCTED BY [facility] polyethylene glycol 3350 [Miralax] 17 gram Powder In Packet 17 g PO DAILY docusate sodium [Colace] 100 mg Capsule 100 mg PO BID Held nitrofurantoin monohyd/m-cryst 100 mg capsule 100 mg PO QAM Hold Instructions: Resume on 05/26/24. Discharge Orders: Discharge Order (Routine); Ordered 05/22/24 Ordered By: Pancho Zafar Admission Data Admit Date/Time: 05/15/24 15:49 Attending Provider: Pancho Zafar Admit Provider: Erik Mathis Primary Care Provider: PCP,NO Other Providers: Erik Mathis; Jessa Reese Other Interventions: Discharge Summary Assessment (RN) Last Done: 05/22/24 09:22 Hospital Stay Data Consultations 05/15/24 14:33 ED Decision to Admit Stat 05/16/24 06:23 Consult Night Monitor Stat Diagnostic Imagining Performed 05/15/24 11:45 CT abd pelvis IV con only Stat 05/15/24 11:54 CT angio chest PE protocol Stat 05/19/24 10:30 FL video swallow Routine Pending Results Patient Have Any Pending Studies at Discharge: No Discharge Instructions Given to Patient (Per Discharging Provider) You were admitted in severe distress with infections and did require support of your breathing with intubation/ventilation. Upon intubation some food debris was suctioned from airway. You are finishing treatment for both urinary infection and a aspiration pneumonia. You had some constipation likely related to your Parkinson's disease and this had been remedied during her hospital stay. Likely because of your illness and antibiotics your blood thinner level went very high however this was now normalized and we are resuming your home medi cations as long as your outpatient doctor can follow-up with that 3 procedures of a racing heartbeat your [place] on a new blood pressure medication which be continued twice a day We discussed you going to rehabilitation however after discussions with family it strongly felt that they take good care of you at home with outpatient physical therapy Total Time Total Time Spent Total Time Spent (In Minutes): It required greater than 30 minutes to prepare this patient for discharge. Coding Level of Care Code 84353 INP/OBS DISCH >30 MIN Diagnoses Sepsis A41.9 Sepsis acute organ dysfunction status: unspecified Sepsis type: sepsis due to unspecified organism Elevated troponin I level R79.89 Supratherapeutic INR R79.1 Parkinsons G20.A1 Acute constipation K59.00
== END 2024-05-22 12:50 | disposition home health service (06) | DRG 871 ==
LOC: ED 11:16 → EDINP 15:49 → SUATTDRO 15:49 → 2S 05-16 05:05 → 1E 05-16 06:43
DX: Z79.52 Long term (current) use of systemic steroids; A41.9 Sepsis, unspecified organism; R33.9 Retention of urine, unspecified; I21.A1 Myocardial infarction type 2; J96.01 Acute respiratory failure with hypoxia; K21.9 Gastro-esophageal reflux disease without esophagitis; T83.518A Infection and inflammatory reaction due to other urinary catheter, initial encounter; Z79.01 Long term (current) use of anticoagulants; G20.A1 Parkinson's disease without dyskinesia, without mention of fluctuations; Z79.899 Other long term (current) drug therapy; E78.5 Hyperlipidemia, unspecified; J69.0 Pneumonitis due to inhalation of food and vomit; Z87.440 Personal history of urinary (tract) infections; N39.0 Urinary tract infection, site not specified; K59.00 Constipation, unspecified; G89.29 Other chronic pain; Z86.718 Personal history of other venous thrombosis and embolism; E83.42 Hypomagnesemia; J44.9 Chronic obstructive pulmonary disease, unspecified